=== PATIENT | female | born 1940 | race Caucasian/White ===

== ENCOUNTER 2019-05-24 20:21 | Emergency (ER) | payer OTHER ==
[~2019-05-24] VITALS: Ht 167.6 cm; Wt 73.9 kg
[~2019-05-24 20:21] MED LIST: ATOR20 PO; CRUTCH USE; HYDACE5 PO; LEVSOD50 PO
[2019-05-24 22:20] LABS: BASOPHILS ABSOLUTE AUTO 0.06 K/mm3 (0.00-0.23); BASOPHILS PERCENT AUTO 1 % (0-2); EOSINOPHILS PERCENT AUTO 6 % (0-6); Hematocrit 35.2 % (33.0-51.0); IMMATURE GRAN ABSOLUTE AUTO 0.06 K/mm3 (0.00-0.10); IMMATURE GRAN PERCENT AUTO 1 % (0-1); LYMPHOCYTES ABSOLUTE AUTO 2.54 K/mm3 (0.84-5.20); LYMPHOCYTES PERCENT AUTO 26 % (21-46); MONOCYTES ABSOLUTE AUTO 0.67 K/mm3 (0.16-1.47); MONOCYTES PERCENT AUTO 7 % (4-13); Mean Corpuscular HGB 30.6 pg (26.0-34.0); Mean Corpuscular HGB Conc 34.1 g/dL (31.5-36.5); Mean Corpuscular Volume 90 fL (80-100); Mean Platelet Volume 8.7 fL (9.1-12.4); NEUTROPHILS PERCENT AUTO 61 % (41-73); Platelet Count 347 K/mm3 (150-400); RDW Coefficient Variation 12.7 % (11.7-14.2); RDW Standard Deviation 41.9 fL (35.1-46.3); Red Blood Cell Count 3.92 M/mm3 (3.80-5.20); White Blood Cell Count 9.93 K/mm3 (4.00-11.30)
[2019-05-24 22:39] LABS: Alanine Aminotransfer (ALT/SGP 22 U/L (12-78); Albumin, Blood 4.2 g/dL (3.4-5.0); Albumin/Globulin Ratio 1.1 (0.8-1.8); Alk Phos 106 U/L (50-136); Anion Gap 5 mmol/L (6-16); Aspartate Aminotrans (AST/SGOT 16 U/L (12-37); Bilirubin, Total 0.8 mg/dL (0.1-1.0); Blood Urea Nitrogen 23 mg/dL (8-24); CO2, Blood 27 mmol/L (21-32); Calcium, Blood 9.8 mg/dL (8.5-10.1); Chloride, Blood 107 mmol/L (98-108); Creatinine, Blood 0.85 mg/dL (0.40-1.00); Globulin, Blood 3.9 g/dL (2.2-4.0); Glomerular Filtration Rate >60 (60-); Glucose, Blood 134 mg/dL (70-99); Potassium, Blood 3.4 mmol/L (3.5-5.5); Sodium, Blood 139 mmol/L (136-145); Total Protein, Blood 8.1 g/dL (6.4-8.2)
[2019-05-24 22:50] LABS: Source, Urine Clean Catch
[2019-05-24 22:54] LABS: Bilirubin, Urine Neg (Neg); Blood, Urine Neg (Neg); Glucose Qualitative, Urine Neg (Neg); Ketones, Urine Neg (Neg); Leukocyte Esterase, Urine Neg (Neg); Nitrite, Urine Neg (Neg); Protein, Urine Neg (Neg); Specific Gravity, Urine 1.015 (1.003-1.022); Urobilinogen, Urine NORM (Normal)
[2019-05-24 22:56] LABS: Appearance, Urine Clear (Clear); Color, Urine Yellow (P-Yellow)
[2019-05-24] MEDS ORDERED: METFORMIN HCL500 M3 PO (23:52)
[2019-05-24] MEDS ORDERED: OMEP20ER PO (23:52)
[2019-05-24] MEDS ORDERED: Mobic15 MG PO (23:52)
[2019-05-24] MEDS ORDERED: LOSARTAN-HCTZ1 EAC2 PO (23:53)
[2019-05-24] MEDS ORDERED: PROP80ER PO (23:53)
[2019-05-24] MEDS ORDERED: HYDCHL25 PO (23:53)
[2019-05-24] MEDS ORDERED: LOSARTAN POTASS25 M2 PO (23:54)
== END 2019-05-25 02:18 | disposition home or self-care (01) ==
LOC: ER 20:21
PROVIDERS: Physician Assistant
DX: I10 Essential (primary) hypertension (principal); R27.0 Ataxia, unspecified; E78.5 Hyperlipidemia, unspecified; E03.9 Hypothyroidism, unspecified; Z79.899 Other long term (current) drug therapy
CPT/HCPCS: 36415; 70450; 80053; 81003; 84484; 85025; 93005; 93010; 99284-25

== ENCOUNTER 2020-07-15 19:22 | Emergency (ER) | payer OTHER ==
[~2020-07-15] VITALS: Ht 157.5 cm; Wt 70.3 kg
[~2020-07-15 19:22] MED LIST changes: +HYDCHL25 PO; +LOSARTAN POTASS25 M2 PO; +LOSARTAN-HCTZ1 EAC2 PO; +METFORMIN HCL500 M3 PO; +Mobic15 MG PO; +OMEP20ER PO; +PROP80ER PO
[2020-07-15 20:13] LABS: BASOPHILS ABSOLUTE AUTO 0.08 K/mm3 (0.00-0.23); BASOPHILS PERCENT AUTO 1 % (0-2); EOSINOPHILS ABSOLUTE AUTO 0.52 K/mm3 (0.00-0.68); EOSINOPHILS PERCENT AUTO 5 % (0-6); Hematocrit 28.9 % (33.0-51.0); Hemoglobin 9.4 g/dL (11.5-16.0); IMMATURE GRAN ABSOLUTE AUTO 0.05 K/mm3 (0.00-0.10); IMMATURE GRAN PERCENT AUTO 1 % (0-1); LYMPHOCYTES PERCENT AUTO 22 % (21-46); MONOCYTES ABSOLUTE AUTO 0.75 K/mm3 (0.16-1.47); MONOCYTES PERCENT AUTO 7 % (4-13); Mean Corpuscular HGB 29.2 pg (26.0-34.0); Mean Corpuscular HGB Conc 32.5 g/dL (31.5-36.5); Mean Corpuscular Volume 90 fL (80-100); Mean Platelet Volume 8.6 fL (9.1-12.4); NEUTROPHILS ABSOLUTE AUTO 6.84 K/mm3 (1.96-9.15); NEUTROPHILS PERCENT AUTO 65 % (41-73); Platelet Count 391 K/mm3 (150-400); RDW Coefficient Variation 14.2 % (11.7-14.2); RDW Standard Deviation 46.6 fL (35.1-46.3); Red Blood Cell Count 3.22 M/mm3 (3.80-5.20); White Blood Cell Count 10.54 K/mm3 (4.00-11.30)
[2020-07-15 20:41] LABS: Albumin, Blood 3.8 g/dL (3.4-5.0); Bilirubin, Total 0.4 mg/dL (0.1-1.0); Bun/Creatinine Ratio 26.4 (12.0-20.0); Creatinine, Blood 1.06 mg/dL (0.40-1.00); Potassium, Blood 3.7 mmol/L (3.5-5.5); Total Protein, Blood 7.8 g/dL (6.4-8.2)
[2020-07-15] MEDS ORDERED: LOSA25 PO (23:19)
[2020-07-15] MEDS ORDERED: PANT40 PO (23:21)
[2020-07-15] MEDS ORDERED: CITA20 (23:21)
[2020-07-16 00:38] LABS: Source, Urine Clean Catch
[2020-07-16 00:39] LABS: Bilirubin, Urine Neg (Neg); Blood, Urine Neg (Neg); Glucose Qualitative, Urine 4+ (Neg); Ketones, Urine Neg (Neg); Leukocyte Esterase, Urine 2+ (Neg); Nitrite, Urine Neg (Neg); Protein, Urine Neg (Neg); Urobilinogen, Urine NORM (Normal)
[2020-07-16 00:46] LABS: Appearance, Urine Clear (Clear); Bacteria Mod /hpf; Color, Urine Yellow (P-Yellow); Red Blood Cells, Urine 0-2 /hpf (0-2); Squamous Epithelial Cells Few /hpf (Few)
[2020-07-16] MEDS ORDERED: CEFP200 PO (01:30)
[2020-09-24] MEDS ORDERED: ATOR20 PO (08:24)
[2020-09-24] MEDS ORDERED: ESCI10 PO (08:24)
[2020-09-24] MEDS ORDERED: DIGESTIVE ENZYMES PO (08:24)
[2020-09-24] MEDS ORDERED: Aspir 8181 MG PO (08:24)
[2020-09-24] MEDS ORDERED: GLIM2 PO (08:25)
[2020-09-24] MEDS ORDERED: EUTHYROX150 MCG PO (08:25)
[2020-09-24] MEDS ORDERED: LEVSOD75 PO (08:25)
[2020-09-24] MEDS ORDERED: LEVOTHYROXINE PO (08:25)
[2020-09-24] MEDS ORDERED: LOSARTAN-HCTZ1 EAC6 PO (08:26)
[2020-09-24] MEDS ORDERED: MULTIPLE VITAM1 EACH PO (08:26)
[2020-09-24] MEDS ORDERED: OMEP20ER PO (08:26)
[2020-09-24] MEDS ORDERED: MOBIC15 MG PO (08:26)
[2020-09-24] MEDS ORDERED: PANT40 PO (08:26)
[2020-09-24] MEDS ORDERED: VERAPAMIL ER120 M1 PO (08:27)
[2020-09-24] MEDS ORDERED: XIGDUO PO (08:27)
== END 2020-07-16 02:03 | disposition home or self-care (01) ==
LOC: ER 19:22
PROVIDERS: Physician Assistant
DX: N39.0 Urinary tract infection, site not specified (principal); I10 Essential (primary) hypertension; E03.9 Hypothyroidism, unspecified; E78.5 Hyperlipidemia, unspecified; Z88.8 Allergy status to other drugs, medicaments and biological substances; Z79.899 Other long term (current) drug therapy
CPT/HCPCS: 36415; 80053; 81001; 85025; 87077; 87086; 87186; 93005; 93010; 99284-25; A9270

== ENCOUNTER 2021-08-06 22:26 | Emergency (ER) | payer OTHER ==
[~2021-08-06] VITALS: Ht 167.6 cm; Wt 63.5 kg
[~2021-08-06 22:26] MED LIST changes: +Aspir 8181 MG PO; +CEFP200 PO; +CITA20; +DIGESTIVE ENZYMES PO; +ESCI10 PO; +EUTHYROX150 MCG PO; +GLIM2 PO; +LEVOTHYROXINE PO; +LEVSOD75 PO; +LOSA25 PO; +LOSARTAN-HCTZ1 EAC6 PO; +MOBIC15 MG PO; +MULTIPLE VITAM1 EACH PO; +PANT40 PO; +Percocet 5-3251 EACH PO; +VERAPAMIL ER120 M1 PO; +XIGDUO PO
[2021-08-06] MEDS ORDERED: METF500 PO ×2 (23:36)
[2021-08-06] MEDS ORDERED: GALANTAMINE PO (23:38)
[2021-08-07 02:08] LABS: BASOPHILS ABSOLUTE AUTO 0.07 K/mm3 (0.00-0.23); BASOPHILS PERCENT AUTO 0 % (0-2); EOSINOPHILS ABSOLUTE AUTO 0.11 K/mm3 (0.00-0.68); EOSINOPHILS PERCENT AUTO 1 % (0-6); Hematocrit 26.8 % (33.0-51.0); Hemoglobin 8.4 g/dL (11.5-16.0); IMMATURE GRAN ABSOLUTE AUTO 0.17 K/mm3 (0.00-0.10); IMMATURE GRAN PERCENT AUTO 1 % (0-1); LYMPHOCYTES ABSOLUTE AUTO 1.52 K/mm3 (0.84-5.20); LYMPHOCYTES PERCENT AUTO 9 % (21-46); MONOCYTES ABSOLUTE AUTO 1.15 K/mm3 (0.16-1.47); MONOCYTES PERCENT AUTO 7 % (4-13); Mean Corpuscular HGB 26.2 pg (26.0-34.0); Mean Corpuscular HGB Conc 31.3 g/dL (31.5-36.5); Mean Corpuscular Volume 84 fL (80-100); NEUTROPHILS ABSOLUTE AUTO 14.19 K/mm3 (1.96-9.15); NEUTROPHILS PERCENT AUTO 83 % (41-73); Platelet Count 406 K/mm3 (150-400); RDW Standard Deviation 55.1 fL (35.1-46.3); Red Blood Cell Count 3.21 M/mm3 (3.80-5.20); White Blood Cell Count 17.21 K/mm3 (4.00-11.30)
[2021-08-07 02:14] LABS: Albumin, Blood 3.9 g/dL (3.4-5.0); Bilirubin, Total 0.6 mg/dL (0.1-1.0); Bun/Creatinine Ratio 24.8 (12.0-20.0); Calcium, Blood 9.4 mg/dL (8.5-10.1); Creatinine, Blood 1.05 mg/dL (0.40-1.00); Globulin, Blood 3.8 g/dL (2.2-4.0); Potassium, Blood 3.6 mmol/L (3.5-5.5); Total Protein, Blood 7.7 g/dL (6.4-8.2)
[2021-08-07] MEDS ORDERED: ONDA4ODT MM (03:21)
[2021-08-10] MEDS ORDERED: ESCI20 (03:30)
== END 2021-08-07 04:04 | disposition home or self-care (01) ==
LOC: ER 22:26
PROVIDERS: Emergency Medicine
DX: S06.0X9A Concussion with loss of consciousness of unspecified duration, initial encounter (principal); R11.2 Nausea with vomiting, unspecified; W22.8XXA Striking against or struck by other objects, initial encounter; E03.9 Hypothyroidism, unspecified; E78.5 Hyperlipidemia, unspecified; I10 Essential (primary) hypertension; Z88.8 Allergy status to other drugs, medicaments and biological substances; Z79.899 Other long term (current) drug therapy; Z79.84 Long term (current) use of oral hypoglycemic drugs; Z79.82 Long term (current) use of aspirin
CPT/HCPCS: 36415; 70450; 70496; 70498; 80053; 83690; 85025; 96374; 99284-25; A9270; J2405; Q9967

== ENCOUNTER 2021-11-08 09:44 | Inpatient (IN) | payer OTHER ==
[~2021-11-08] VITALS: Ht 167.6 cm; Wt 66.2 kg
[~2021-11-08 09:44] MED LIST changes: +ESCI20; +GALANTAMINE PO; +METF500 PO; +ONDA4ODT MM
[2021-11-08 11:31] LABS: BASOPHILS ABSOLUTE AUTO 0.05 K/mm3 (0.00-0.23); BASOPHILS PERCENT AUTO 0 % (0-2); EOSINOPHILS ABSOLUTE AUTO 0.01 K/mm3 (0.00-0.68); EOSINOPHILS PERCENT AUTO 0 % (0-6); Hematocrit 30.7 % (33.0-51.0); Hemoglobin 9.8 g/dL (11.5-16.0); IMMATURE GRAN PERCENT AUTO 1 % (0-1); LYMPHOCYTES ABSOLUTE AUTO 1.23 K/mm3 (0.84-5.20); LYMPHOCYTES PERCENT AUTO 6 % (21-46); MONOCYTES ABSOLUTE AUTO 1.52 K/mm3 (0.16-1.47); MONOCYTES PERCENT AUTO 8 % (4-13); Mean Corpuscular HGB 26.1 pg (26.0-34.0); Mean Corpuscular HGB Conc 31.9 g/dL (31.5-36.5); Mean Corpuscular Volume 82 fL (80-100); Mean Platelet Volume 8.6 fL (9.1-12.4); NEUTROPHILS ABSOLUTE AUTO 16.82 K/mm3 (1.96-9.15); NEUTROPHILS PERCENT AUTO 85 % (41-73); Platelet Count 499 K/mm3 (150-400); RDW Coefficient Variation 15.2 % (11.7-14.2); RDW Standard Deviation 44.7 fL (35.1-46.3); Red Blood Cell Count 3.75 M/mm3 (3.80-5.20); White Blood Cell Count 19.83 K/mm3 (4.00-11.30)
[2021-11-08 11:38] LABS: Source, Urine Straight Cath
[2021-11-08 11:50] LABS: Albumin, Blood 3.1 g/dL (3.4-5.0); Albumin/Globulin Ratio 0.6 (0.8-1.8); Bilirubin, Total 1.1 mg/dL (0.1-1.0); Bun/Creatinine Ratio 16.1 (12.0-20.0); Calcium, Blood 9.9 mg/dL (8.5-10.1); Creatinine, Blood 1.43 mg/dL (0.40-1.00); Globulin, Blood 5.1 g/dL (2.2-4.0); Total Protein, Blood 8.2 g/dL (6.4-8.2)
[2021-11-08] MEDS ORDERED: LORA.5 (11:57)
[2021-11-08] MEDS ORDERED: PROC25S (11:57)
[2021-11-08] MEDS ORDERED: [UNRECOGNIZED DRUG - OTHER] (11:57)
[2021-11-08] MEDS ORDERED: ONDA4ODT (11:58)
[2021-11-08 12:25] LABS: Appearance, Urine Hazy (Clear); Bilirubin, Urine Neg (Neg); Blood, Urine 4+ (Neg); Color, Urine Yellow (P-Yellow); Glucose Qualitative, Urine Neg (Neg); Ketones, Urine Neg (Neg); Leukocyte Esterase, Urine 3+ (Neg); Nitrite, Urine Neg (Neg); Protein, Urine 3+ (Neg); Urobilinogen, Urine NORM (Normal)
[2021-11-08 12:46] LABS: Influenza A, PCR NEGATIVE (NEGATIVE); Influenza B, PCR NEGATIVE (NEGATIVE); Resp Syncytial Virus, PCR NEGATIVE (NEGATIVE); SARS-Cov-2 (COVID-19) PCR, MMC NEGATIVE (NEGATIVE)
[2021-11-08 12:53] LABS: Bacteria Mod /hpf; Squamous Epithelial Cells Few /hpf (Few); Transitional Epithelial Cells Few /hpf (0-Rare)
[2021-11-08 17:23] LABS: Percent Saturation 6.2 % (15.0-50.0)
--- NOTE | 2021-11-08 18:46 | NUR ---
SHIFT SUMMARY PTN TRANSFER FROM ER. REPORTED TO BE WITH NAUSEA AND VOMITING FOR PAST WEEK, NOW WEAK AND DEHYRATED. PLEASANT AND COOPERATIVE. PTN WAS INDEPENDENT AT HOME UNTIL THIS EPISODE. PTN CURRENTLY A 2-PERSON ASSIST DUE TO WEAKNESS. RIGHT KNEE DISCOMFORT DUE TO ARTHRITIS FOR WHICH SHE TAKES TYLENOL. PTN CONTINENT, USING BEDSIDE COMMODE CURRENTLY. 20 G IV TO RIGHT FOREARM, CURRENTLY RUNNING NS CONTINUOUS. BP ELEVATED, THOUGH PTN HAS NOT BEEN ABLE TO KEEP ANYTHING DOWN. TODAY NO VOMITING, NAUSEA ONLY. PTN STATES FEELING SOMEWHAT BETTER TODAY. CONSULT FOR PALLIATIVE CARE.
[2021-11-09 04:39] LABS: BASOPHILS ABSOLUTE AUTO 0.05 K/mm3 (0.00-0.23); BASOPHILS PERCENT AUTO 0 % (0-2); EOSINOPHILS ABSOLUTE AUTO 0.13 K/mm3 (0.00-0.68); EOSINOPHILS PERCENT AUTO 1 % (0-6); Hemoglobin 7.8 g/dL (11.5-16.0); IMMATURE GRAN ABSOLUTE AUTO 0.08 K/mm3 (0.00-0.10); IMMATURE GRAN PERCENT AUTO 1 % (0-1); LYMPHOCYTES ABSOLUTE AUTO 1.74 K/mm3 (0.84-5.20); LYMPHOCYTES PERCENT AUTO 13 % (21-46); MONOCYTES ABSOLUTE AUTO 1.27 K/mm3 (0.16-1.47); MONOCYTES PERCENT AUTO 10 % (4-13); Mean Corpuscular HGB 25.7 pg (26.0-34.0); Mean Corpuscular HGB Conc 31.2 g/dL (31.5-36.5); Mean Corpuscular Volume 83 fL (80-100); Mean Platelet Volume 8.5 fL (9.1-12.4); NEUTROPHILS ABSOLUTE AUTO 9.88 K/mm3 (1.96-9.15); NEUTROPHILS PERCENT AUTO 75 % (41-73); Platelet Count 412 K/mm3 (150-400); RDW Standard Deviation 45.4 fL (35.1-46.3); Red Blood Cell Count 3.03 M/mm3 (3.80-5.20); White Blood Cell Count 13.15 K/mm3 (4.00-11.30)
--- NOTE | 2021-11-09 04:49 | NUR ---
SHIFT SUMMARY 81 YR F ADMITTED ON 11/08 FOR UTI. DNR. PT C/O RIGHT KNEE PAIN STAING THAT IT IS VERY PAINFUL TO GET OUT OF BED TO USE THE BATHROOM, AND THAT SHE CAN'T WALK. SHE IS RECEIVING CONTINUOUS FLUIDS @ 100 ML/HR SO IT WAS DECIDED TO USE A PUREWICK TO AVOID THE PT HAVING TO GET UP CONSTANTLY TO URINATE. IT IS WORKING VERY WELL. SHE IS A VERY PLEASANT WOMAN AND IS FULLY COOPERATIVE WITH HER CARE. BP IS ELEVATED AND VERAPAMIL IS SCHEDULED FOR 0900.
[2021-11-09 05:03] LABS: Albumin, Blood 2.4 g/dL (3.4-5.0); Anion Gap 8 mmol/L (6-16); Blood Urea Nitrogen 14 mg/dL (8-24); Bun/Creatinine Ratio 13.9 (12.0-20.0); CO2, Blood 25 mmol/L (21-32); Calcium, Blood 8.8 mg/dL (8.5-10.1); Chloride, Blood 104 mmol/L (98-108); Creatinine, Blood 1.01 mg/dL (0.40-1.00); Glomerular Filtration Rate 57 (60-); Glucose, Blood 136 mg/dL (70-99); Phosphorus, Blood 2.7 mg/dL (2.5-4.9); Potassium, Blood 2.9 mmol/L (3.5-5.5); Sodium, Blood 137 mmol/L (136-145)
[2021-11-09 15:00] LABS: Bun/Creatinine Ratio 14.5 (12.0-20.0); Calcium, Blood 8.6 mg/dL (8.5-10.1); Creatinine, Blood 0.96 mg/dL (0.40-1.00); Potassium, Blood 3.4 mmol/L (3.5-5.5)
--- NOTE | 2021-11-09 18:39 | NUR ---
PATIENT IS ALERT AND ORIENTED. POOR HISTORIAN AT TIMES. PATIENT STATES SHE FEELS 100X BETTER THIS SHIFT. TOLERATING HER DIET, NO NV. C/O BACK PAIN MEDICATED PER EMAR. HER GRANDDAUGHTER STATES THIS PATIENT HAS HAD THIS BACK PAIN CHRONICALLY. PATIENT WORKED WITH PT TODAY. UP IN RECLINER. PUREWICK IN PLACE. WILL CONTINUE TO MONITOR
--- NOTE | 2021-11-10 05:39 | NUR ---
PT AOX4, NO N/V T/O SHIFT. PT C/O BACK PAIN 11/21 AND WAS GIVEN PRN TYLENOL AND THEN WAS ABLE TO SLEEP. WHEN ASKED IF SHE NEEDED ANYTHING STRONGER SHE EMPHATICALLY SAID NO. PT SLEPT WELL T/O MOST OF THE NIGHT. PUREWICK IN PLACE AND DRAINING WELL. PT STATED SHE FELT TO WEAK TO TRY THE C TONIGHT AT THE START OF THE SHIFT.
[2021-11-10 05:40] LABS: BASOPHILS ABSOLUTE AUTO 0.05 K/mm3 (0.00-0.23); BASOPHILS PERCENT AUTO 1 % (0-2); EOSINOPHILS PERCENT AUTO 3 % (0-6); Hematocrit 24.5 % (33.0-51.0); Hemoglobin 7.6 g/dL (11.5-16.0); IMMATURE GRAN ABSOLUTE AUTO 0.06 K/mm3 (0.00-0.10); IMMATURE GRAN PERCENT AUTO 1 % (0-1); LYMPHOCYTES ABSOLUTE AUTO 1.94 K/mm3 (0.84-5.20); LYMPHOCYTES PERCENT AUTO 20 % (21-46); MONOCYTES ABSOLUTE AUTO 0.93 K/mm3 (0.16-1.47); MONOCYTES PERCENT AUTO 9 % (4-13); Mean Corpuscular HGB 25.6 pg (26.0-34.0); Mean Corpuscular Volume 83 fL (80-100); Mean Platelet Volume 8.9 fL (9.1-12.4); NEUTROPHILS ABSOLUTE AUTO 6.58 K/mm3 (1.96-9.15); NEUTROPHILS PERCENT AUTO 67 % (41-73); Platelet Count 426 K/mm3 (150-400); RDW Coefficient Variation 15.4 % (11.7-14.2); RDW Standard Deviation 46.1 fL (35.1-46.3); Red Blood Cell Count 2.97 M/mm3 (3.80-5.20); White Blood Cell Count 9.86 K/mm3 (4.00-11.30)
[2021-11-10 06:01] LABS: Albumin, Blood 2.3 g/dL (3.4-5.0); Anion Gap 7 mmol/L (6-16); Blood Urea Nitrogen 15 mg/dL (8-24); Bun/Creatinine Ratio 14.7 (12.0-20.0); CO2, Blood 22 mmol/L (21-32); Calcium, Blood 8.5 mg/dL (8.5-10.1); Chloride, Blood 108 mmol/L (98-108); Creatinine, Blood 1.02 mg/dL (0.40-1.00); Glomerular Filtration Rate 56 (60-); Glucose, Blood 156 mg/dL (70-99); Magnesium, Blood 1.7 mg/dL (1.6-2.4); Phosphorus, Blood 2.2 mg/dL (2.5-4.9); Potassium, Blood 3.7 mmol/L (3.5-5.5); Sodium, Blood 137 mmol/L (136-145)
[2021-11-10] MEDS ORDERED: AMOCLA875 PO (14:52)
[2021-11-10] MEDS ORDERED: Aspir 8181 MG PO (14:52)
[2021-11-10] MEDS ORDERED: Acetaminophen650 M1 PO (14:52)
[2021-11-10] MEDS ORDERED: Celexa20 MG PO (14:53)
[2021-11-10] MEDS ORDERED: ATOR20 PO (14:53)
[2021-11-10] MEDS ORDERED: LOSA25 PO (14:53)
[2021-11-10] MEDS ORDERED: FAMO10 PO (14:54)
[2021-11-10] MEDS ORDERED: FERSU300 PO (14:54)
[2021-11-10] MEDS ORDERED: ATIVAN0.5 MG PO (14:55)
[2021-11-10] MEDS ORDERED: GALA4 PO (14:55)
[2021-11-10] MEDS ORDERED: VISBIOME 112.51 EACH PO (14:56)
[2021-11-10] MEDS ORDERED: VERA120ERB PO (14:56)
[2021-11-10] MEDS ORDERED: EUTHYROX125 MCG PO (14:57)
[2021-11-10] MEDS ORDERED: PANT40 PO (14:57)
--- NOTE | 2021-11-10 15:40 | NUR ---
DISCHARGE PATIENT TRANSPORTED VIA WHEELCHAIR TO PRIVATE VEHICLE. DISCHARGE INSTRUCTIONS EXPLAINED TO PATIENT. PATIENT STATED UNDERSTANDING. PACKET SENT WITH PATIENT. BELONGINGS SENT WITH PATIENT. IV REMOVED WIHTOUT DIFFICULTY BY DARWIN CASSIDY. MEDICATIONS FAXED TO PREFERRED PHARMACY. PATIENT TO SCHEDULE FOLLOW UP APPOINTMENT.
== END 2021-11-10 13:41 | disposition home health service (06) | DRG 683 ==
LOC: ER 09:44 → MEDS 16:02
PROVIDERS: Emergency Medicine; ADMIT Internal Medicine
DX: N17.9 Acute kidney failure, unspecified (principal); E87.1 Hypo-osmolality and hyponatremia; N39.0 Urinary tract infection, site not specified; E86.0 Dehydration; E03.9 Hypothyroidism, unspecified; G30.9 Alzheimer's disease, unspecified; D50.9 Iron deficiency anemia, unspecified; Z20.822 Contact with and (suspected) exposure to COVID-19; E78.5 Hyperlipidemia, unspecified; E11.9 Type 2 diabetes mellitus without complications; Z86.73 Personal history of transient ischemic attack (TIA), and cerebral infarction without residual deficits; Z88.8 Allergy status to other drugs, medicaments and biological substances; Z90.49 Acquired absence of other specified parts of digestive tract; Z90.710 Acquired absence of both cervix and uterus; Z79.82 Long term (current) use of aspirin; Z79.899 Other long term (current) drug therapy; D75.839 Thrombocytosis, unspecified; D64.9 Anemia, unspecified
CPT/HCPCS: 0241U; 36415; 51701; 73562-RT; 76770; 80048; 80053; 80069; 81001; 82728; 83540; 83550; 83690; 83735; 85025; 87086; 87147; 93005; 93010; 96361-59; 96374-59; 96375-59; 97110; 97112; 97116; 97161; 97530; 99285-25; A9270; J0360; J0696; J1650; J2405; J3480; J7030; J7050; J7120

== ENCOUNTER 2022-05-11 10:58 | Day surgery (SDC) | payer OTHER ==
[~2022-05-11] VITALS: Ht 167.6 cm; Wt 68.9 kg
[~2022-05-11 10:58] MED LIST changes: +AMOCLA875 PO; +ATIVAN0.5 MG PO; +Acetaminophen650 M1 PO; +Celexa20 MG PO; +EUTHYROX125 MCG PO; +FAMO10 PO; +FERSU300 PO; +GALA4 PO; +LORA.5; +ONDA4ODT; +PROC25S; +VERA120ERB PO; +VISBIOME 112.51 EACH PO; +[UNRECOGNIZED DRUG - OTHER]
[2022-05-11] MEDS ORDERED: Carvedilol12.5 MG (11:13)
[2022-05-11] MEDS ORDERED: CHLO25B (11:13)
[2022-05-11] MEDS ORDERED: FURO20 (11:14)
[2022-05-11] MEDS ORDERED: ESCI20 (11:14)
[2022-05-11] MEDS ORDERED: MEMA5TAB (11:14)
== END 2022-05-11 13:30 | disposition home or self-care (01) ==
LOC: ORSCSDS 10:58
PROVIDERS: Student in an Organized Health Care Education/Training Program
PROC: 0DBL8ZX Excision of Transverse Colon, Via Natural or Artificial Opening Endoscopic, Diagnostic (ICD-10-PCS; principal; 2022-05-11 12:15)
PROC: 0DBH8ZX Excision of Cecum, Via Natural or Artificial Opening Endoscopic, Diagnostic (ICD-10-PCS; principal; 2022-05-11 12:15)
PROC: 0DBK8ZX Excision of Ascending Colon, Via Natural or Artificial Opening Endoscopic, Diagnostic (ICD-10-PCS; principal; 2022-05-11 12:15)
DX: D50.9 Iron deficiency anemia, unspecified (principal); K92.1 Melena; D12.3 Benign neoplasm of transverse colon; D12.0 Benign neoplasm of cecum; D12.2 Benign neoplasm of ascending colon; K64.8 Other hemorrhoids; K64.4 Residual hemorrhoidal skin tags; K62.89 Other specified diseases of anus and rectum; I10 Essential (primary) hypertension; E11.9 Type 2 diabetes mellitus without complications; E03.9 Hypothyroidism, unspecified; Z79.82 Long term (current) use of aspirin; Z79.899 Other long term (current) drug therapy; Z79.84 Long term (current) use of oral hypoglycemic drugs
CPT/HCPCS: 82947; 88305; J2704; J7120

== ENCOUNTER 2022-05-23 23:59 | Observation (INO) | payer OTHER ==
[~2022-05-23] VITALS: Ht 162.6 cm; Wt 68.0 kg
[~2022-05-23 23:59] MED LIST changes: +CHLO25B PO; +Carvedilol12.5 MG PO; +ESCI20 PO; +FURO20 PO; +LOSARTAN POTAS100 MG PO; +MEMA5TAB
[2022-05-24 00:57] LABS: BASOPHILS ABSOLUTE AUTO 0.07 K/mm3 (0.00-0.23); BASOPHILS PERCENT AUTO 0 % (0-2); EOSINOPHILS ABSOLUTE AUTO 0.28 K/mm3 (0.00-0.68); EOSINOPHILS PERCENT AUTO 2 % (0-6); Hemoglobin 11.7 g/dL (11.5-16.0); IMMATURE GRAN PERCENT AUTO 2 % (0-1); LYMPHOCYTES ABSOLUTE AUTO 1.47 K/mm3 (0.84-5.20); LYMPHOCYTES PERCENT AUTO 8 % (21-46); MONOCYTES ABSOLUTE AUTO 1.07 K/mm3 (0.16-1.47); MONOCYTES PERCENT AUTO 6 % (4-13); Mean Corpuscular HGB 31.4 pg (26.0-34.0); Mean Corpuscular HGB Conc 34.4 g/dL (31.5-36.5); Mean Corpuscular Volume 91 fL (80-100); Mean Platelet Volume 9.5 fL (9.1-12.4); NEUTROPHILS ABSOLUTE AUTO 15.96 K/mm3 (1.96-9.15); NEUTROPHILS PERCENT AUTO 83 % (41-73); Platelet Count 263 K/mm3 (150-400); RDW Coefficient Variation 12.2 % (11.7-14.2); RDW Standard Deviation 40.4 fL (35.1-46.3); Red Blood Cell Count 3.73 M/mm3 (3.80-5.20); White Blood Cell Count 19.25 K/mm3 (4.00-11.30)
[2022-05-24 01:37] LABS: Albumin, Blood 3.5 g/dL (3.4-5.0); Albumin/Globulin Ratio 0.9 (0.8-1.8); Bilirubin, Total 0.7 mg/dL (0.1-1.0); Bun/Creatinine Ratio 32.8 (12.0-20.0); Calcium, Blood 9.3 mg/dL (8.5-10.1); Creatinine, Blood 1.34 mg/dL (0.40-1.00); Globulin, Blood 3.7 g/dL (2.2-4.0); Total Protein, Blood 7.2 g/dL (6.4-8.2)
[2022-05-24] MEDS ORDERED: Acetaminophen650 M1 PO (05:12)
[2022-05-24] MEDS ORDERED: Celexa20 MG PO (05:14)
[2022-05-24] MEDS ORDERED: FAMO10 PO (05:15)
[2022-05-24] MEDS ORDERED: LORA.5 PO (05:17)
[2022-05-24] MEDS ORDERED: GALA4 PO (05:18)
[2022-05-24] MEDS ORDERED: Micro-K8 MEQ PO (05:23)
[2022-05-24] MEDS ORDERED: LEVOCETIRIZINE D5 MG PO (05:25)
[2022-05-24] MEDS ORDERED: MEMANTINE HCL511 PO (05:26)
--- NOTE | 2022-05-24 18:23 | NUR ---
SHIFT SUMMARY PT AOX4 AND VERY PLEASANT AND COOPERATIVE. SHE HAS C/O PAIN T/O THE SHIFT AND WAS MEDICATED PER THE EMAR. SHE HAS BEEN ON BEDREST ALL DAY WITH A PURWICK IN PLACE. SHE HAS BEEN EATING WELL. HER CBG'S HAVE BEEN ELEVATED AT TIMES, THE PROVIDER WAS NOTIFIED AND INSULIN WAS GIVEN ORDERED. HOME MEDICATIONS WERE RESTARTED TOO. WILL REPORT TO ONCOMING NURSE.
[2022-05-25 00:48] LABS: Source, Urine Clean Catch
[2022-05-25 00:54] LABS: Bilirubin, Urine Neg (Neg); Blood, Urine Neg (Neg); Glucose Qualitative, Urine 4+ (Neg); Ketones, Urine Neg (Neg); Leukocyte Esterase, Urine 3+ (Neg); Nitrite, Urine Neg (Neg); Protein, Urine 2+ (Neg); Urobilinogen, Urine NORM (Normal); pH, Urine 6.5 (5.0-8.0)
[2022-05-25 01:05] LABS: Appearance, Urine Hazy (Clear); Color, Urine Pale Yellow (P-Yellow)
[2022-05-25 01:06] LABS: Red Blood Cells, Urine 0-2 /hpf (0-2)
[2022-05-25 01:07] LABS: Bacteria Many /hpf; Squamous Epithelial Cells Rare /hpf (Few)
--- NOTE | 2022-05-25 05:34 | NUR ---
MEDICATED HYDROCODONE 2 TAB Q 4 HRS, PT TOLERATED REPOSITIONING WELL. PT EASILY AWOKEN, A&OX4, PT SLEPT MOST OF SHIFT
[2022-05-25 05:48] LABS: BASOPHILS ABSOLUTE AUTO 0.06 K/mm3 (0.00-0.23); BASOPHILS PERCENT AUTO 1 % (0-2); EOSINOPHILS ABSOLUTE AUTO 0.52 K/mm3 (0.00-0.68); EOSINOPHILS PERCENT AUTO 5 % (0-6); Hematocrit 33.3 % (33.0-51.0); Hemoglobin 11.4 g/dL (11.5-16.0); IMMATURE GRAN PERCENT AUTO 1 % (0-1); LYMPHOCYTES PERCENT AUTO 20 % (21-46); MONOCYTES ABSOLUTE AUTO 0.69 K/mm3 (0.16-1.47); MONOCYTES PERCENT AUTO 7 % (4-13); Mean Corpuscular HGB 31.9 pg (26.0-34.0); Mean Corpuscular HGB Conc 34.2 g/dL (31.5-36.5); Mean Corpuscular Volume 93 fL (80-100); Mean Platelet Volume 9.7 fL (9.1-12.4); NEUTROPHILS ABSOLUTE AUTO 6.82 K/mm3 (1.96-9.15); NEUTROPHILS PERCENT AUTO 67 % (41-73); Platelet Count 229 K/mm3 (150-400); RDW Coefficient Variation 12.5 % (11.7-14.2); RDW Standard Deviation 42.8 fL (35.1-46.3); Red Blood Cell Count 3.57 M/mm3 (3.80-5.20); White Blood Cell Count 10.19 K/mm3 (4.00-11.30)
[2022-05-25 06:26] LABS: Albumin, Blood 2.8 g/dL (3.4-5.0); Albumin/Globulin Ratio 0.7 (0.8-1.8); Bilirubin, Total 0.7 mg/dL (0.1-1.0); Calcium, Blood 8.9 mg/dL (8.5-10.1); Creatinine, Blood 1.48 mg/dL (0.40-1.00); Globulin, Blood 3.8 g/dL (2.2-4.0); Potassium, Blood 3.8 mmol/L (3.5-5.5); Total Protein, Blood 6.6 g/dL (6.4-8.2)
--- NOTE | 2022-05-25 19:34 | NUR ---
SHIFT SUMMARY A&O X 4. VSS. MEDICATED FOR PAIN PER EMAR WITH GOOD RELIEF. MEDICATED ONCE FOR NAUSEA. PT PARTICIPATED WITH PHYS THERAPY TODAY. PT IS AGREEABLE TO GO TO REHAB UPON DC. APPETITE IS GOOD.
--- NOTE | 2022-05-25 21:14 | NUR ---
PT ARRIVED VIA STRETCHER FORM ED, ABLE TO AMBULATE TO BED WITH NO ASSIST. PT AND FAMILY ORIENTED TO ROOM
--- NOTE | 2022-05-26 05:43 | NUR ---
PT CALLS FOR NEEDS, REPOSITION WITH PAIN MEDICATION. PAIN LESS THAN PREVIOUS NOC.
[2022-05-26 06:18] LABS: Bun/Creatinine Ratio 22.4 (12.0-20.0); Calcium, Blood 8.8 mg/dL (8.5-10.1); Creatinine, Blood 1.47 mg/dL (0.40-1.00); Potassium, Blood 3.7 mmol/L (3.5-5.5)
[2022-05-26] MEDS ORDERED: Acetaminophen650 M1 PO (13:56)
[2022-05-26] MEDS ORDERED: BISA10S PR (13:59)
[2022-05-26] MEDS ORDERED: DOCU100 PO (14:00)
[2022-05-26] MEDS ORDERED: GLIP2.5ER PO (14:02)
[2022-05-26] MEDS ORDERED: HYDR1TAB94 PO (14:03)
[2022-05-26] MEDS ORDERED: INSULIN GL100 UNIT/2 SC (14:05)
[2022-05-26] MEDS ORDERED: MIRALAX17 GM PO (14:05)
[2022-05-26] MEDS ORDERED: SENN187 PO (14:06)
[2022-05-26 14:25] LABS: SARS-Cov-2 (COVID-19) PCR, MMC NEGATIVE (NEGATIVE)
--- NOTE | 2022-05-26 17:17 | NUR ---
PT IS A/OX3, PLEASANT AND COOPERATIVE. THE PT HAS BEEN REPOSITIONED T/O THE DAY. PT WAS UP ON THE SIDE OF THE BED TODAY AND STOOD WITH THE OCCUPATIONAL THERAPIST. THE PT HAS BEEN MEDICATED FOR PAIN T/O THE DAY. THE PT WAS GIVEN BOWEL CARE TODAY FOR CONSTIPATION. PT APPEARS TO BE BREATHING EASILY ON RA WILL CONTINUE TO MONITOR AND ASSESS FOR CHANGES
--- NOTE | 2022-05-27 06:23 | NUR ---
BM LAST NIGHT, PT STATES TO FEEL BETTER. MEDICATED FOR PAIN Q4-5 HRS, REPOSITION WITH PAIN MEDICATION. CALLS FOR NEEDS.
--- NOTE | 2022-05-27 15:15 | NUR ---
PT DISCHARGED [facility] REPORT CALLED TO RN. THE PT WAS TRANSFERED VIA WHEELCHAIR. PT WAS MEDICATED FOR PAIN JUST PRIOR TO DC. BELONGINGS RELEASED TO THE PT
== END 2022-05-27 12:45 ==
LOC: ER 23:59 → MEDS 05-24 → ER 05-24 → MEDS 05-24 05:16
PROVIDERS: Internal Medicine; Internal Medicine Hematology & Oncology; Physician Assistant; ADMIT Internal Medicine
DX: S32.511A Fracture of superior rim of right pubis, initial encounter for closed fracture (principal); W19.XXXA Unspecified fall, initial encounter; E11.22 Type 2 diabetes mellitus with diabetic chronic kidney disease; N18.30 Chronic kidney disease, stage 3 unspecified; I12.9 Hypertensive chronic kidney disease with stage 1 through stage 4 chronic kidney disease, or unspecified chronic kidney disease; E03.9 Hypothyroidism, unspecified; E11.65 Type 2 diabetes mellitus with hyperglycemia; G30.9 Alzheimer's disease, unspecified; F02.80 Dementia in other diseases classified elsewhere, unspecified severity, without behavioral disturbance, psychotic disturbance, mood disturbance, and anxiety; Z86.73 Personal history of transient ischemic attack (TIA), and cerebral infarction without residual deficits; Z20.822 Contact with and (suspected) exposure to COVID-19; S32.10XA Unspecified fracture of sacrum, initial encounter for closed fracture
CPT/HCPCS: 36415; 72192; 73502; 80048; 80053; 81001; 82947; 83036; 83880; 85025; 87077; 87086; 87186; 96375; 96376; 97162; 97166; 97530; 97535; 99285-25; A9270; G0378; J1815; J2405; J3010; J7030; U0004

== ENCOUNTER → 2022-08-20 | Outpatient (CLI) | payer OTHER ==
[~2022-08-20] MED LIST changes: +BISA10S PR; +DOCU100 PO; +GLIP2.5ER PO; +HYDR1TAB94 PO; +INSULIN GL100 UNIT/2 SC; +LEVOCETIRIZINE D5 MG PO; +LORA.5 PO; +MEMANTINE HCL511 PO; +MIRALAX17 GM PO; +Micro-K8 MEQ PO; +SENN187 PO
[2022-08-20 12:57] LABS: Creatinine Urine 32.8 mg/dL (27.00-270.00); Protein, Urine Quantitative 19.8 mg/dL (0.0-11.9)
== END | disposition home or self-care (01) ==
LOC: LAB SHORT 10:54 → LAB 10:54
PROVIDERS: Internal Medicine Nephrology
DX: N18.30 Chronic kidney disease, stage 3 unspecified (principal); D63.1 Anemia in chronic kidney disease; N25.81 Secondary hyperparathyroidism of renal origin; E55.9 Vitamin D deficiency, unspecified; E78.00 Pure hypercholesterolemia, unspecified; G60.9 Hereditary and idiopathic neuropathy, unspecified; R76.9 Abnormal immunological finding in serum, unspecified; R94.5 Abnormal results of liver function studies
CPT/HCPCS: 81050; 82043; 82570; 84156

== ENCOUNTER → 2023-07-18 | Outpatient (CLI) | payer OTHER | END | disposition home or self-care (01) | LOC: LAB 13:00 → LAB SHORT 13:00 | DX: R30.0 Dysuria (principal); E78.5 Hyperlipidemia, unspecified ==

== ENCOUNTER 2024-02-26 21:46 | Inpatient (IN) | payer OTHER ==
[~2024-02-26] VITALS: Ht 167.6 cm; Wt 81.7 kg
[~2024-02-26 21:46] MED LIST changes: +ACET500 PO; -EUTHYROX125 MCG PO; -INSULIN GL100 UNIT/2 SC; +LEVSOD137 PO; +METAMUCIL POWD798 GM PO; -MIRALAX17 GM PO; +SEMGLEE (Y100 UNIT/2 SC; -VERA120ERB PO
[2024-02-26 22:51] LABS: BASOPHILS ABSOLUTE AUTO 0.04 K/mm3 (0.00-0.23); BASOPHILS PERCENT AUTO 0 % (0-2); EOSINOPHILS ABSOLUTE AUTO 0.04 K/mm3 (0.00-0.68); EOSINOPHILS PERCENT AUTO 0 % (0-6); Hematocrit 31.6 % (33.0-51.0); Hemoglobin 10.5 g/dL (11.5-16.0); IMMATURE GRAN PERCENT AUTO 2 % (0-1); LYMPHOCYTES ABSOLUTE AUTO 0.97 K/mm3 (0.84-5.20); LYMPHOCYTES PERCENT AUTO 8 % (21-46); MONOCYTES ABSOLUTE AUTO 0.66 K/mm3 (0.16-1.47); MONOCYTES PERCENT AUTO 5 % (4-13); Mean Corpuscular HGB Conc 33.2 g/dL (31.5-36.5); Mean Corpuscular Volume 93 fL (80-100); Mean Platelet Volume 8.8 fL (9.1-12.4); NEUTROPHILS ABSOLUTE AUTO 10.46 K/mm3 (1.96-9.15); NEUTROPHILS PERCENT AUTO 85 % (41-73); Platelet Count 320 K/mm3 (150-400); RDW Coefficient Variation 13.8 % (11.7-14.2); RDW Standard Deviation 47.1 fL (35.1-46.3); Red Blood Cell Count 3.39 M/mm3 (3.80-5.20); White Blood Cell Count 12.37 K/mm3 (4.00-11.30)
[2024-02-26 23:12] LABS: Magnesium, Blood 2.1 mg/dL (1.6-2.4); Thyroid Stimulating Hormone 0.115 uIU/mL (0.360-4.800)
[2024-02-26 23:13] LABS: Albumin, Blood 2.9 g/dL (3.4-5.0); Albumin/Globulin Ratio 0.7 (0.8-1.8); Bilirubin, Total 0.3 mg/dL (0.1-1.0); Bun/Creatinine Ratio 17.4 (12.0-20.0); Calcium, Blood 8.8 mg/dL (8.5-10.1); Creatinine, Blood 1.44 mg/dL (0.40-1.00); Globulin, Blood 4.2 g/dL (2.2-4.0); Phosphorus, Blood 3.2 mg/dL (2.5-4.9); Potassium, Blood 3.1 mmol/L (3.5-5.5); Total Protein, Blood 7.1 g/dL (6.4-8.2)
[2024-02-26] MEDS ORDERED: NS 1,000 ML IV SCH (23:55)
[2024-02-26] MEDS ORDERED: Potassium Chloride 20 MEQ TabCR PO ONE (23:55)
[2024-02-27] VITALS (17 sets, daily range): BP systolic 137–185; BP diastolic 56–74
[2024-02-27 00:07] LABS: Source, Urine Straight Cath
[2024-02-27 00:14] LABS: Bilirubin, Urine Neg (Neg); Blood, Urine 1+ (Neg); Glucose Qualitative, Urine 4+ (Neg); Ketones, Urine Neg (Neg); Leukocyte Esterase, Urine Neg (Neg); Nitrite, Urine Pos (Neg); Protein, Urine 2+ (Neg); Specific Gravity, Urine 1.015 (1.003-1.022); Urobilinogen, Urine NORM (Normal)
[2024-02-27 00:16] LABS: Appearance, Urine Hazy (Clear); Color, Urine Pale Yellow (P-Yellow)
[2024-02-27 00:32] LABS: Amorphous Mod (0-Heavy); Bacteria Many /hpf; Red Blood Cells, Urine 0-2 /hpf (0-2); Squamous Epithelial Cells Few /hpf (Few)
[2024-02-27] MEDS ORDERED: CefTRIAXone Sodium 1,000 MG in NS 50 ML IV ONE (01:05)
[2024-02-27] MEDS ORDERED: HYDROcodone 5-APAP 325 TAB PO PRN (02:10)
[2024-02-27] MEDS ORDERED: FentaNYL Citrate 50 MCG/ML 2 ML Injection IV PRN (02:10)
[2024-02-27] MEDS ORDERED: Ondansetron HCl 2 MG / ML 2ML Vial IV PRN (02:55)
--- NOTE | 2024-02-27 03:27 | NUR ---
ASSUMED CARE OF PT AT 0305 PT WAS ADMITTED FOR UTI AND POSSIBLE RIGHT HIP FX. PT HAS FLU LIKE SYMPTOMS AND IN ISOLATION TO RULE OUT C-DIFF AND RESP PANEL IS PENDING.PT ARRIVED VOMITING AND DR WANG WAS CALLED FOR MEDICATION RO HELP WITH NAUSEA, ORDERED ZOFRAN. PT IS NOW RESTING W/CALL LIGHT IN REACH AND HAS EMESIS BAGS CLOSE TO HER BEDSIDE. PT SEEMS SLIGHTLY CONFUSED, BED ALARM SET.
[2024-02-27] MEDS ORDERED: FURO20 PO (04:05)
[2024-02-27] MEDS ORDERED: JARDIANCE10 MG PO (04:06)
[2024-02-27] MEDS ORDERED: MELATONIN5 M1 PO (04:07)
[2024-02-27 04:09] LABS: Influenza B, PCR NEGATIVE (NEGATIVE); Resp Syncytial Virus, PCR NEGATIVE (NEGATIVE); SARS-Cov-2 (COVID-19) PCR, MMC NEGATIVE (NEGATIVE)
[2024-02-27] MEDS ORDERED: METAMUCIL POWD798 GM PO (04:09)
[2024-02-27] MEDS ORDERED: POTA8 PO (04:10)
[2024-02-27] MEDS ORDERED: SERT25 PO (04:12)
[2024-02-27] MEDS ORDERED: SEMGLEE (Y100 UNIT/2 SC (04:12)
[2024-02-27] MEDS ORDERED: Vitamin D1000 UNI1 PO (04:13)
[2024-02-27] MEDS ORDERED: Alph-E-Mixed400 UNIT PO (04:14)
[2024-02-27] MEDS ORDERED: Calcium Carbon500 MG PO (04:16)
[2024-02-27] MEDS ORDERED: CALMOSEPTINE TOP (04:17)
[2024-02-27] MEDS ORDERED: DIGESTIVE ENZYMES PO (04:19)
[2024-02-27] MEDS ORDERED: LEVOCETIRIZINE D5 MG PO (04:20)
[2024-02-27] MEDS ORDERED: Loperamide2 MG PO (04:21)
[2024-02-27] MEDS ORDERED: DULCOLAX400 MG/5 M PO (04:21)
[2024-02-27] MEDS ORDERED: NYAMYC15 G1 TOP (04:22)
[2024-02-27] MEDS ORDERED: ONDA4ODT SL (04:23)
[2024-02-27] MEDS ORDERED: PROC5 PO (04:23)
[2024-02-27] MEDS ORDERED: Fleet Enema132 ML PR (04:23)
[2024-02-27 05:01] LABS: Influenza A, PCR POSITIVE (NEGATIVE)
[2024-02-27] MEDS ORDERED: Lactated Ringer's 1,000 ML IV SCH (06:00)
[2024-02-27] MEDS ORDERED: Oseltamvir Phosphate 30 MG Cap PO SCH ×2 (06:00)
[2024-02-27] MEDS ORDERED: Insulin Regular 100 UNIT/ML 10ML Vial SC SCH ×2 (06:00→21:00)
[2024-02-27] MEDS ORDERED: Lactobacil 2-S.Thermo-Bifido 1 1 Cap PO SCH (09:00)
[2024-02-27] MEDS ORDERED: Amoxicillin/Clavulanate K 500 MG Tab PO SCH (09:00)
[2024-02-27] MEDS ORDERED: Enoxaparin 40 MG/0.4 ML SYR SC SCH (09:00)
[2024-02-27] MEDS ORDERED: MIRALAX119 GM PO (11:16)
--- NOTE | 2024-02-27 13:45 | NUR ---
RETURNED TO 212 VIA BED. SURGERY CANCELLED BY DR AVALOS, ANESTHESIOLOGIST DUE TO PT NEEDING A ECHO WITH MURMUR NOTED ON EXAM. REPORT GIVEN TO ONESIMO BENDER.
[2024-02-27] MEDS ORDERED: EpiNEPhrine 1 MG/1 ML 1ML Vial ONE (13:52)
[2024-02-27] MEDS ORDERED: Bupivacaine 0.5% HCl 5 MG/ML 30MLVIAL ONE (13:52)
[2024-02-27] MEDS ORDERED: CeFAZolin Sodium 2,000 MG in NS 100 ML IV SCH (14:15)
[2024-02-27] MEDS ORDERED: propofoL 100 ML IV ONE (14:26)
[2024-02-27] MEDS ORDERED: Dexamethasone Sod Phos 10 MG/ML 1ML VIAL ONE (14:28)
[2024-02-27] MEDS ORDERED: Ondansetron HCl 2 MG / ML 2ML Vial ONE (14:28)
[2024-02-27] MEDS ORDERED: Ketorolac Tromethamine 30mg Vial ONE (14:28)
[2024-02-27] MEDS ORDERED: Vasopressin 20 UNITS/ML 1ML Vial ONE (14:39)
[2024-02-27] MEDS ORDERED: HYDROmorphone HCl/Pf 1MG SYR ONE (14:47)
--- NOTE | 2024-02-27 14:53 | NUR ---
1430 0 PT TO DAY SURG FOR HIP
[2024-02-27] MEDS ORDERED: Labetalol HCL 5 MG/ML 4ML Injection (Single Dose) ONE (15:56)
--- NOTE | 2024-02-27 16:50 | NUR ---
CALLED DR OWEN BP SINCE BACK FROM DAY SURG. SHE TO REVIEW
--- NOTE | 2024-02-27 16:51 | NUR ---
PT TO DAY SURG FOR PIN PLACED IN HIP. RETURNED AT 1630 TOP ROOM. PT A/O PLEASANT COOP . FAMILY JUST RETURNED TO ROOM TO VISIT. AQUACEL PLACED OVER OP SITE. PT ON 2L O2, JUST WEANED TO 1L, B/P ELEVATED, DR NOTIFIED PENDING ORDRES. BED IN LOW POSITION,C ALL LITE IN [facility], CALLS APPROP
[2024-02-27] MEDS ORDERED: Bisacodyl 10 MG Supp PR PRN (19:45)
[2024-02-27] MEDS ORDERED: Calcium Carbonate 500 MG Tab Chew PO PRN (19:50)
[2024-02-27] MEDS ORDERED: Menthol/Zinc Oxide Ointment 1 APPLIC/113 GM Tube TOP PRN (19:50)
[2024-02-27] MEDS ORDERED: Miconazole Nitrate 2% 85 GM PWD TOP PRN (20:20)
[2024-02-27] MEDS ORDERED: Loratadine 10 MG Tab PO PRN (20:25)
[2024-02-27] MEDS ORDERED: Insulin Glargine-Yfgn 100 Unit/mL 3 ML SYR SC SCH (21:00)
[2024-02-27] MEDS ORDERED: Memantine HCL 5 MG Tab PO SCH (21:00)
[2024-02-27] MEDS ORDERED: Melatonin 5 MG Tablet PO SCH (21:00)
[2024-02-27] MEDS ORDERED: Docusate Sodium 100 MG Cap PO SCH (21:00)
[2024-02-28 03:07] VITALS: BP 132/61
--- NOTE | 2024-02-28 03:34 | NUR ---
SHIFT SUMM: PT HAS BEEN DOING WELL SINCE HER HIP PIN WAS PLACED, VITALS HAVE BEEN WNL AND CHECKED Q4. DRESSING HAS BEEN CHECKED THROUGH OUT SHIFT AND MINIMAL DRAINAGE ON AQUA SEAL KEPT IN PLACE. CAP REFILL ON LOWER EXTREMETIES GOOD AND PINK NORMAL SKIN. PT IS INCONT AND CALLS TO BE CHANGED. ENCOURAGED PT TO USE BEDPAN AND SHE DID ATTEMPT. PT REQUESTED PAIN MEDICATION AND HAS BEEN RECOVERING WELL W/MIN COMPLAINTS. PT HAD NO NEED FOR REG INSULIN TONIGHT AND RECEIVED 15 SUBQ OF GLARGINE BEFORE BED. PT IS A&O3-4 AND HAS CALL LIGHT IN REACH AND BED ALARM ON BUT CALLS APPROPRIATELY. SCD'S ARE ON LEGS. STILL WAITING ON A STOOL SAMPLE TO RULE OUT C-DIFF BUT PT TESTED POS FOR INFLUENZA A.
[2024-02-28 05:35] LABS: Hematocrit 29.4 % (33.0-51.0); Hemoglobin 9.7 g/dL (11.5-16.0); Mean Corpuscular Volume 94 fL (80-100); Platelet Count 252 K/mm3 (150-400); RDW Standard Deviation 47.9 fL (35.1-46.3); Red Blood Cell Count 3.13 M/mm3 (3.80-5.20); White Blood Cell Count 8.19 K/mm3 (4.00-11.30)
[2024-02-28] MEDS ORDERED: Pantoprazole Sodium 40 MG Tab PO SCH (06:00)
[2024-02-28] MEDS ORDERED: Levothyroxine Sodium 0.137 MG Tab PO SCH (06:00)
[2024-02-28 06:06] LABS: Bun/Creatinine Ratio 21.1 (12.0-20.0); Calcium, Blood 9.2 mg/dL (8.5-10.1); Creatinine, Blood 1.66 mg/dL (0.40-1.00); Potassium, Blood 3.4 mmol/L (3.5-5.5)
[2024-02-28 07:35] VITALS: BP 143/66
[2024-02-28] MEDS ORDERED: Carvedilol 6.25 MG Tab PO SCH (08:00)
[2024-02-28] MEDS ORDERED: DIGESTIVE ENZYMES PO SCH (08:30)
[2024-02-28] MEDS ORDERED: Potassium Chloride 20 MEQ TabCR PO STA (08:44)
[2024-02-28] MEDS ORDERED: Sertraline HCl 50 MG Tab PO SCH (09:00)
[2024-02-28] MEDS ORDERED: Polyethylene Glycol 3350 17 gm PO SCH (09:00)
[2024-02-28] MEDS ORDERED: Aspirin 81 MG TabEC PO SCH (09:00)
[2024-02-28] MEDS ORDERED: Ferrous Sulfate 325 MG Tab PO SCH (09:00)
[2024-02-28] MEDS ORDERED: Empagliflozin 10 MG TAB PO SCH (09:00)
[2024-02-28] MEDS ORDERED: Citalopram Hydrobromide 20 MG Tab PO SCH (09:00)
[2024-02-28] MEDS ORDERED: HydroCHLOROthiazide 25 mg Tab PO SCH (09:00)
[2024-02-28] MEDS ORDERED: Insulin Glargine-Yfgn 100 Unit/mL 3 ML SYR SC SCH (09:00)
[2024-02-28] MEDS ORDERED: Losartan Potassium 50 MG Tab PO SCH (09:00)
[2024-02-28] MEDS ORDERED: Vitamin E 400 Intn'l Units Cap PO SCH (09:00)
[2024-02-28] MEDS ORDERED: Cholecalciferol 1000 Unit Tablet (=25MCG) PO SCH (09:00)
[2024-02-28] MEDS ORDERED: Verapamil HCL 240 MG TABCR PO SCH (09:00)
[2024-02-28 16:17] VITALS: BP 127/50
--- NOTE | 2024-02-28 17:24 | NUR ---
SHIFT SUMMARY PT SLEEPING AT START OF SHIFT, RESTING QUIETLY WITH EYES CLOSED. ADMITTED FOR UTI AND FOUND TO R HIP FX FROM FALL AT HOME; PIN PLACED YESTERDAY BY DR PAYAN, PER REPORT. PT FROM [facility]; UPDATE GIVEN TO STAFF TODAY. PT HAS BEEN INCONTINENT OF URINE, NOT CALLING UNTIL AFTER SHE VOIDS. NO STOOL X2 DAYS. INFECTION CONTROL CALLED TO CK ON R/O C-DIFF ORDER. R/O CANCELED AT THIS TIME. PT REMAINS IN DROPLET ISO FOR INFLUENZA A AND ESBL IN URINE. DR PAYAN NOTIFIED TODAY FOR PT/OT ORDERS. DR WHITE BY [facility] TO SEE PT, PLACING ORDERS WELL. PT MEDICATED PER EMAR FOR C/O PAIN NEEDED. PLEASANT AND CO-OP WITH CARE. ABLE TO MAKE NEEDS KNOWN.
[2024-02-28 19:23] VITALS: BP 119/50
[2024-02-29 02:03] VITALS: BP 144/52
[2024-02-29 03:35] VITALS: BP 121/59
--- NOTE | 2024-02-29 05:14 | NUR ---
NOC SUMMARY- PT PAIN MANAGED WELL. PT HAS BEEN VOIDING VIA PUREWICK DEVICE. PT REPOSITIONED TOLERATED. PT HAS BEEN ABLE TO REST COMFORTABLY THIS SHIFT. CALL LIGHT IN REACH.
[2024-02-29 07:59] VITALS: BP 161/65
--- NOTE | 2024-02-29 10:04 | NUR ---
ASSUMED CARE OF PATIENT. PATIENT SLEPT THROUGH BEDSIDE REPORT. PRONE WITH HOB ELEVATED. NO ACUTE CONCERNS.
[2024-02-29] MEDS ORDERED: Enoxaparin 40 MG/0.4 ML SYR SC SCH (12:00)
[2024-02-29 12:32] LABS: Calcium, Blood 9.1 mg/dL (8.5-10.1); Creatinine, Blood 1.68 mg/dL (0.40-1.00); Potassium, Blood 3.6 mmol/L (3.5-5.5)
[2024-02-29 15:54] VITALS: BP 130/84
--- NOTE | 2024-02-29 18:33 | NUR ---
END OF SHIFT SUMMARY: A&Ox3-4. PLEASANT AND COOPERATIVE WITH CARE. CALLS APPROPRIATELY AND IS ABLE TO ADVOCATE NEEDS EFFECTIVELY. INCONTINENT OF BLADDER; PUREWICK IN PLACE. Q2H REPOSITIONING PROVIDED. LBM TODAY. MEDS WHOLE WITH FLUIDS. MEDICATED PRN PAIN x3 TODAY. 2PA c FWW. TTWB RLE AFTER WORKING WITH PT/OT TODAY; RECOMMENDING SNF IN 1-2 DAYS. GRANDDAUGHTER, ZAIN, IS A NURSE WITH [facility] AND CAN BE REACHED FOR ANY QUESTIONS OR CONCERNS. BED IN LOWEST POSITION, CALL LIGHT WITHIN REACH, ALL NEEDS MET. REPORT TO ONCOMING NURSE.
[2024-02-29 19:18] VITALS: BP 145/49
[2024-02-29] MEDS ORDERED: GuaiFENesin 600 MG TabCR PO SCH (21:00)
[2024-03-01 04:16] VITALS: BP 148/56
--- NOTE | 2024-03-01 04:41 | NUR ---
PT HAS HAD A GOOD EVENING WITH SOME PAIN AND SHE HAS BEEN MEDICATED FOR PAIN. PT HAS BEEN RESTING BUT HAVING A HARD TIME GETTING COMFORTABLE AND OFTEN NEEDS READJUSTED. PT ENJOYS HAVING LEFT FOOT PROPPED UP. PT IS STILL INCONTINENT AND PURE WICK HAS BEEN REMOVED BECAUSE PT HAS HAD DIARRHEA. PT CALLS WHEH SHES NEEDS CHANGED AND TAKES MEDS WWW FINE. I CHANGED PATIENTS AQUACELL DRESSING THIS SHIFT AND THERE WAS A LITTLE OVER 2 INCHES OF EXUDATE/BLOOD ON OLD AQUACELL BANDAGE. PT TURNS IN BED WELL W/LITTLE ASSISTANCE AND HAS BEEN FLOATED ON PILLOWS.PT HAS CALL LIGHT IN REACH.
--- NOTE | 2024-03-01 07:27 | NUR ---
ASSUMED CARE OF PATIENT. ASLEEP. SUPINE WITH HOB ELEVATED. LAST MEDICATED PAIN 0200.
[2024-03-01 07:36] VITALS: BP 143/60
[2024-03-01 09:00] LABS: Bun/Creatinine Ratio 25.8 (12.0-20.0); Calcium, Blood 8.9 mg/dL (8.5-10.1); Creatinine, Blood 1.63 mg/dL (0.40-1.00); Potassium, Blood 3.4 mmol/L (3.5-5.5)
[2024-03-01] MEDS ORDERED: ENOX40I SC (12:36)
[2024-03-01] MEDS ORDERED: AMOCLA500 PO (12:36)
[2024-03-01] MEDS ORDERED: Norco 5-325 Ta1 EACH PO (12:37)
[2024-03-01] MEDS ORDERED: GUAI600T33 PO (12:37)
[2024-03-01] MEDS ORDERED: VISBIOME 112.51 EACH PO (12:38)
[2024-03-01] MEDS ORDERED: Tamiflu30 MG PO (12:38)
[2024-03-01 12:46] LABS: CORONAVIRUS COVID-19 AG Negative (NEGATIVE)
[2024-03-01] MEDS ORDERED: Banana Flakes/Tos 1 EA Powder Pack PO SCH (14:00)
[2024-03-01 15:57] VITALS: BP 145/55
--- NOTE | 2024-03-01 19:18 | NUR ---
END OF SHIFT SUMMARY: A&Ox3-4. PLEASANT AND COOPERATIVE WITH CARE. CALLS APPROPRIATELY AND IS ABLE TO ADVOCATE NEEDS EFFECTIVELY. INCONTINENT OF BOWEL AND BLADDER. VALERIE DC d DUE TO SEVERAL BOUTS OF DIARRHEA. ORDERS FOR STOOL SAMPLE, BUT HAVE BEEN UNABLE TO COLLECT WITHOUT CONTAMINATING WITH URINE. BANANA FLAKES INITIATED TODAY. MEDICATED PRN PAIN x2 T/O SHIFT. Q2H REPOSITIONING PROVIDED. MEDS WHOLE WITH FLUIDS. MEDICATED PRN PAIN x3 TODAY. SMALL AREA OF EXCORIATION NOTED TO BE STARTING BELOW RIGHT GLUTEAL CLEFT. CONTINUING WITH Q2H TURNS. DID NOT GET UP TO CHAIR TODAY DUE TO FEAR OF SOILING SELF IN CHAIR. C / O GENERALIZED MALAISE, LIKELY RELATED TO INFLUENZA. WAS ACCEPTED TO SNF BUT INSURANCE AUTHORIZATION PENDING. GRANDDAUGHTER, ZAIN, IS A NURSE WITH [facility] AND CAN BE REACHED FOR ANY QUESTIONS OR CONCERNS. BED IN LOWEST POSITION, CALL LIGHT WITHIN REACH, ALL NEEDS MET. REPORT TO ONCOMING NURSE.
[2024-03-01 20:09] VITALS: BP 180/60
[2024-03-01 20:20] VITALS: BP 148/64
[2024-03-01 23:57] LABS: Adenovirus F 40/41 Not Detected (NOT DETECT); Astrovirus Not Detected (NOT DETECT); Campylobacter Sp Not Detected (NOT DETECT); Cryptosporidium Not Detected (NOT DETECT); Cyclospora Cayetanensis Not Detected (NOT DETECT); E. Coli O157 Not Detected (NOT DETECT); Entamoeba Histolytica Not Detected (NOT DETECT); Enteroaggregative E. coli-EAEC Not Detected (NOT DETECT); Enteropathogenic E. coli-EPEC Not Detected (NOT DETECT); Enterotoxigenic E. coli-ETEC Not Detected (NOT DETECT); Giardia Lamblia Not Detected (NOT DETECT); Norovirus GI/GII Not Detected (NOT DETECT); Plesiomonas Shigelloides Not Detected (NOT DETECT); Rotavirus A Not Detected (NOT DETECT); Salmonella Sp Not Detected (NOT DETECT); Sapovirus Not Detected (NOT DETECT); Shiga Toxin-prod E. coli-STEC Not Detected (NOT DETECT); Shigella/Enteroin E. coli-EIEC Not Detected (NOT DETECT); Vibrio Cholerae Not Detected (NOT DETECT); Vibrio Sp Not Detected (NOT DETECT); Yersinia Enterocolitica Not Detected (NOT DETECT)
--- NOTE | 2024-03-02 05:29 | NUR ---
PHONE ENGINEER SUMMARY PT REMAINS STABLE, ALTHOUGH HAD A DIFFICULT TIME SLEEPING RELATED TO A DIFFICULT TIME "GETTING COMFORTABLE". AFTER SEVERAL POSITION CHANGES AND REARRANGING PILLOWS WE TRIED MORE PAIN MEDICINE AND SHE FINALLY ABLE TO SLEEP. SENT A STOOL SAMPLE TO LAB AND GI PANEL IS NEGATIVE. PT HAD DIARRHEA ABOUT EVERY 2 HOURS THROUGHOUT THE NIGHT. MAY BENEFIT FROM IMMODIUM HER SKIN IS EXCORITAED AND HER GI PANEL IS NEGATIVE. THERE APPEARS TO BE DOCUMENTATION OF PATIENT HAVING A "STAGE 1" PRESSURE ULCER, BUT SHE DOESNT HAVE ANY PRESSURE INJURIES. SHE ONLY HAS SOME EXCORIATION RELATED TO DIARRHEA/MOISTURE. USED THE THICK BARRIER CREAM THROUGHOUT THE NIGHT AND HER SKIN ALREADY LOOKS LESS RED.
[2024-03-02 05:48] VITALS: BP 159/77
[2024-03-02 05:56] LABS: Bun/Creatinine Ratio 29.9 (12.0-20.0); Calcium, Blood 9.2 mg/dL (8.5-10.1); Creatinine, Blood 1.37 mg/dL (0.40-1.00); Potassium, Blood 3.5 mmol/L (3.5-5.5)
[2024-03-02 08:06] VITALS: BP 178/70
== END 2024-03-02 15:12 | DRG 481 ==
LOC: ER 21:46 → MEDS 02-27 02:26 → ENPENDDIS 03-01 11:19 → MEDS 03-02 15:12
PROVIDERS: Emergency Medicine; Internal Medicine; Orthopaedic Surgery; ADMIT Student in an Organized Health Care Education/Training Program
PROC: 0QH634Z Insertion of Internal Fixation Device into Right Upper Femur, Percutaneous Approach (ICD-10-PCS; principal; 2024-02-27 14:15)
DX: S72.011A Unspecified intracapsular fracture of right femur, initial encounter for closed fracture (principal); F03.93 Unspecified dementia, unspecified severity, with mood disturbance; N39.0 Urinary tract infection, site not specified; F03.A4 Unspecified dementia, mild, with anxiety; Z16.12 Extended spectrum beta lactamase (ESBL) resistance; W18.30XA Fall on same level, unspecified, initial encounter; I12.9 Hypertensive chronic kidney disease with stage 1 through stage 4 chronic kidney disease, or unspecified chronic kidney disease; E11.22 Type 2 diabetes mellitus with diabetic chronic kidney disease; E03.9 Hypothyroidism, unspecified; J10.1 Influenza due to other identified influenza virus with other respiratory manifestations; E78.5 Hyperlipidemia, unspecified; E86.0 Dehydration; D50.9 Iron deficiency anemia, unspecified; G47.00 Insomnia, unspecified; Z66 Do not resuscitate; B96.20 Unspecified Escherichia coli [E. coli] as the cause of diseases classified elsewhere; K44.9 Diaphragmatic hernia without obstruction or gangrene; K21.9 Gastro-esophageal reflux disease without esophagitis; A08.4 Viral intestinal infection, unspecified; N18.32 Chronic kidney disease, stage 3b; L89.151 Pressure ulcer of sacral region, stage 1; D63.1 Anemia in chronic kidney disease; E87.6 Hypokalemia; Z88.2 Allergy status to sulfonamides; Z88.8 Allergy status to other drugs, medicaments and biological substances; Z88.1 Allergy status to other antibiotic agents; Z79.82 Long term (current) use of aspirin; Z79.899 Other long term (current) drug therapy; Z79.890 Hormone replacement therapy; Z79.4 Long term (current) use of insulin; Z79.84 Long term (current) use of oral hypoglycemic drugs; Z79.891 Long term (current) use of opiate analgesic; Z90.49 Acquired absence of other specified parts of digestive tract; Z90.710 Acquired absence of both cervix and uterus; Z86.73 Personal history of transient ischemic attack (TIA), and cerebral infarction without residual deficits; Z87.19 Personal history of other diseases of the digestive system
CPT/HCPCS: 0241U; 36415; 71046; 73502; 80048; 80053; 81001; 82947; 83605; 83735; 84100; 84439; 84443; 84484; 85025; 85027; 87040; 87077; 87086; 87186; 87426-QW; 87507; 93005; 93010; 94760; 96361-59; 96374-59; 97110; 97162; 97530; 99285-25; A9270; C1713; C1769; J0171; J0690; J0696; J1100; J1171; J1650; J1815; J1885; J2405; J2704; J3010; J7030; J7120; P9612

== ENCOUNTER 2024-05-17 16:50 | Inpatient (IN) | payer OTHER ==
[~2024-05-17] VITALS: Ht 165.1 cm; Wt 84.9 kg
[~2024-05-17 16:50] MED LIST changes: +AMOCLA500 PO; +Alph-E-Mixed400 UNIT PO; +CALMOSEPTINE TOP; +Calcium Carbon500 MG PO; +DULCOLAX400 MG/5 M PO; +ENOX40I SC; +Fleet Enema132 ML PR; +GUAI600T33 PO; +JARDIANCE10 MG PO; +Loperamide2 MG PO; +MELATONIN5 M1 PO; +MIRALAX119 GM PO; +NYAMYC15 G1 TOP; +Norco 5-325 Ta1 EACH PO; +ONDA4ODT SL; +POTA8 PO; +PROC5 PO; +SERT25 PO; +Tamiflu30 MG PO; +Vitamin D1000 UNI1 PO
[2024-05-17 17:41] LABS: BASOPHILS PERCENT AUTO 0 % (0-2); EOSINOPHILS ABSOLUTE AUTO 0.02 K/mm3 (0.00-0.68); EOSINOPHILS PERCENT AUTO 0 % (0-6); Hemoglobin 11.4 g/dL (11.5-16.0); IMMATURE GRAN ABSOLUTE AUTO 0.19 K/mm3 (0.00-0.10); IMMATURE GRAN PERCENT AUTO 1 % (0-1); LYMPHOCYTES ABSOLUTE AUTO 0.92 K/mm3 (0.84-5.20); LYMPHOCYTES PERCENT AUTO 3 % (21-46); MONOCYTES ABSOLUTE AUTO 1.09 K/mm3 (0.16-1.47); MONOCYTES PERCENT AUTO 4 % (4-13); Mean Corpuscular HGB 31.7 pg (26.0-34.0); Mean Corpuscular HGB Conc 34.5 g/dL (31.5-36.5); Mean Corpuscular Volume 92 fL (80-100); Mean Platelet Volume 9.3 fL (9.1-12.4); NEUTROPHILS PERCENT AUTO 92 % (41-73); Platelet Count 450 K/mm3 (150-400); RDW Standard Deviation 43.8 fL (35.1-46.3); White Blood Cell Count 27.82 K/mm3 (4.00-11.30)
[2024-05-17 18:08] LABS: Source, Urine Straight Cath
[2024-05-17 18:16] LABS: Appearance, Urine Hazy (Clear); Bilirubin, Urine Neg (Neg); Blood, Urine 3+ (Neg); Glucose Qualitative, Urine 3+ (Neg); Ketones, Urine Neg (Neg); Leukocyte Esterase, Urine 3+ (Neg); Nitrite, Urine Neg (Neg); Protein, Urine 3+ (Neg); Urobilinogen, Urine NORM (Normal)
[2024-05-17 18:24] LABS: Color, Urine Pale Yellow (P-Yellow)
[2024-05-17 18:25] LABS: Bacteria Many /hpf; Squamous Epithelial Cells Few /hpf (Few); White Blood Cells, Urine TNTC /hpf (0-5)
[2024-05-17] MEDS ORDERED: Ondansetron HCl 2 MG / ML 2ML Vial IV ONE (18:25)
[2024-05-17] MEDS ORDERED: Ampicillin Sod/Sulbactam Sod 3 GM in NS 100 ML IV ONE (18:30)
[2024-05-17 18:52] LABS: Albumin, Blood 3.2 g/dL (3.4-5.0); Albumin/Globulin Ratio 0.7 (0.8-1.8); Bilirubin, Total 0.6 mg/dL (0.1-1.0); Bun/Creatinine Ratio 20.6 (12.0-20.0); Calcium, Blood 9.3 mg/dL (8.5-10.1); Creatinine, Blood 1.94 mg/dL (0.40-1.00); Globulin, Blood 4.7 g/dL (2.2-4.0); Potassium, Blood 2.9 mmol/L (3.5-5.5); Total Protein, Blood 7.9 g/dL (6.4-8.2)
[2024-05-17] MEDS ORDERED: Lactated Ringer's 1,000 ML IV ONE (19:20)
[2024-05-17] MEDS ORDERED: Potassium Chl 20MEQ/Water100ML 100 ML IV SCH (19:20)
[2024-05-17] MEDS ORDERED: Metoclopramide HCl 5MG / ML 2ML Vial IV ONE (19:20)
[2024-05-17] MEDS ORDERED: Potassium Chloride 40 MEQ in NS 250 ML IV SCH (20:00)
[2024-05-17] MEDS ORDERED: Acetaminophen 325 MG TABLET PO PRN (22:40)
[2024-05-17] MEDS ORDERED: FLU VACC TS2024-25(6MOS UP)/PF 45 MCG/0.5 ML SYRINGE IM ONE (22:45)
[2024-05-17] MEDS ORDERED: NS 1,000 ML IV SCH (22:45)
[2024-05-17] MEDS ORDERED: Ondansetron HCl 2 MG / ML 2ML Vial IV PRN (22:45)
[2024-05-17] MEDS ORDERED: Heparin Sodium 5000 Units/ML 1ML MDV SC SCH (23:00)
[2024-05-17] MEDS ORDERED: Meropenem 500 MG in NS 100 ML IV SCH (23:34)
[2024-05-18 01:06] LABS: Free Thyroxine 1.53 ng/dL (0.70-1.60)
[2024-05-18 01:07] LABS: Thyroid Stimulating Hormone 0.575 uIU/mL (0.360-4.800)
[2024-05-18 01:18] VITALS: BP 149/66
--- NOTE | 2024-05-18 04:35 | NUR ---
SHIFT SUMM: PT WAS A TRANSFER/ADMIT FROM THE ER AND IS A 83 YO DNR WHO WAS ADMITTED FOR SEPSIS/UTI. PT IS IN ISOLATION FOR ESBL IN URINE. PT HAS HAD A HARD TIME BEING ABLE TO URINATE AND RECIEVED Q SHIFT BLADDER SCANS AND PT ADMITS TO HAVING A LITTLE BIT OF URINE COME OUT PRIOR TO COMING TO THE FLOOR. PT IS NPO DUE TO NAUSEA AND VOMITTING. Q6 GLUCOSE CHECKS AND INCONT TO URINE AND STOOL AND BEDBOUND AT BASELINE.PT IS CURRENTLY ON 2L NC FOR SLEEPING BUT DOESNT WEAR O2 AT BASELINE ACCORDING TO REPORT. PT CAME FROM [facility]. PT IS ON TELE SINUS IN THE 80'S. PT IS ON CONT FLUIDS AT 75ML/HR AND IS A&OX4 FOR ME BUT HAS SOME BOUTS OF CONFUSION ACCORDING TO REPORT. PT HAS CALL LIGHT IN REACH AND I WILL CONTINUE TO MAKE ROUNDS ON PT.
[2024-05-18 05:34] VITALS: BP 159/59
[2024-05-18] MEDS ORDERED: Insulin Human Lispro 100 Units/ML 3ML Syringe SC SCH (07:30)
[2024-05-18 07:38] VITALS: BP 163/61
[2024-05-18 07:39] LABS: Hematocrit 31.3 % (33.0-51.0); Hemoglobin 10.7 g/dL (11.5-16.0); LYMPHOCYTES ABSOLUTE AUTO 1.22 K/mm3 (0.84-5.20); LYMPHOCYTES PERCENT AUTO 3 % (21-46); MONOCYTES ABSOLUTE AUTO 2.39 K/mm3 (0.16-1.47); MONOCYTES PERCENT AUTO 5 % (4-13); Mean Corpuscular HGB 31.5 pg (26.0-34.0); Mean Corpuscular HGB Conc 34.2 g/dL (31.5-36.5); Mean Corpuscular Volume 92 fL (80-100); Mean Platelet Volume 8.9 fL (9.1-12.4); Platelet Count 339 K/mm3 (150-400); RDW Coefficient Variation 13.5 % (11.7-14.2); RDW Standard Deviation 45.5 fL (35.1-46.3); White Blood Cell Count 47.26 K/mm3 (4.00-11.30)
[2024-05-18 07:46] LABS: BASOPHILS ABSOLUTE AUTO 0.02 K/mm3 (0.00-0.23); BASOPHILS PERCENT AUTO 0 % (0-2); EOSINOPHILS ABSOLUTE AUTO 4.67 K/mm3 (0.00-0.68); EOSINOPHILS PERCENT AUTO 10 % (0-6); IMMATURE GRAN PERCENT AUTO 6 % (0-1); NEUTROPHILS ABSOLUTE AUTO 36.36 K/mm3 (1.96-9.15); NEUTROPHILS PERCENT AUTO 77 % (41-73)
[2024-05-18 08:00] LABS: Albumin, Blood 2.6 g/dL (3.4-5.0); Albumin/Globulin Ratio 0.6 (0.8-1.8); Bilirubin, Total 0.4 mg/dL (0.1-1.0); Bun/Creatinine Ratio 18.5 (12.0-20.0); Calcium, Blood 9.1 mg/dL (8.5-10.1); Creatinine, Blood 2.48 mg/dL (0.40-1.00); Globulin, Blood 4.6 g/dL (2.2-4.0); Potassium, Blood 3.6 mmol/L (3.5-5.5); Total Protein, Blood 7.2 g/dL (6.4-8.2)
[2024-05-18 08:59] LABS: BAND PERCENT MAN 15 % (0-8); BASOPHILS PERCENT MAN 0 % (0-2); EOSINOPHILS PERCENT MAN 0 % (0-6); LYMPHOCYTES ABSOLUTE MAN 1.41 K/mm3 (0.84-5.20); LYMPHOCYTES PERCENT MAN 3 % (21-46); MONOCYTES ABSOLUTE MAN 1.89 K/mm3 (0.16-1.47); MONOCYTES PERCENT MAN 4 % (4-13); NEUTROPHILS ABSOLUTE MAN 43.95 K/mm3 (1.96-9.15); SEG NEUTROPHILS PERCENT MAN 78 % (41-73); TOTAL CELLS COUNTED 100
[2024-05-18] MEDS ORDERED: Bisacodyl 10 MG Supp PR SCH (09:00)
[2024-05-18] MEDS ORDERED: Sennosides 8.6 MG Tab PO SCH ×2 (09:00→21:00)
[2024-05-18] MEDS ORDERED: Magnesium Hydroxide Conc 10 ML UDC PO SCH (09:00)
[2024-05-18] MEDS ORDERED: NS 1,000 ML IV SCH (11:30)
[2024-05-18] MEDS ORDERED: Loratadine 10 MG Tab PO PRN (11:50)
[2024-05-18] MEDS ORDERED: Miconazole Nitrate 2% 85 GM PWD TOP PRN (11:50)
[2024-05-18] MEDS ORDERED: N-Acetylcysteine 600 MG CAP PO SCH ×2 (12:00)
--- NOTE | 2024-05-18 13:41 | NUR ---
note md put in orderes to d/c tele. pt off tele. pt reports no chest pain discomfort. pt reports not having dentures with her and requested a softer diet, order applied per pt request and nursing judgement. dr. lopez notified about updated micro cultures.
[2024-05-18 15:06] VITALS: BP 165/70
[2024-05-18 15:57] LABS: Source, Urine Foley catheter
[2024-05-18 16:04] LABS: Appearance, Urine Hazy (Clear); Bilirubin, Urine Neg (Neg); Blood, Urine 5+ (Neg); Glucose Qualitative, Urine 4+ (Neg); Ketones, Urine Neg (Neg); Leukocyte Esterase, Urine 2+ (Neg); Nitrite, Urine Neg (Neg); Protein, Urine 3+ (Neg); Specific Gravity, Urine 1.015 (1.003-1.022); Urobilinogen, Urine NORM (Normal)
[2024-05-18 16:20] LABS: Color, Urine Pale Yellow (P-Yellow)
[2024-05-18 16:22] LABS: Bacteria Mod /hpf; Squamous Epithelial Cells Mod /hpf (Few); Transitional Epithelial Cells Few /hpf (0-Rare); White Blood Cells, Urine 25-50 /hpf (0-5)
[2024-05-18] MEDS ORDERED: Carvedilol 6.25 MG Tab PO SCH (17:00)
--- NOTE | 2024-05-18 19:27 | NUR ---
SHIFT SUMMARY PT A&OX4. PT ADMITTED DUE TO SEPSIS. PT REPORTS PAIN ON R SIDE, PAIN MANAGED PER EMAR. DR. ORTEGA ORDERED A INDEWLLING CATH. THIS RN, INSERTED BEY, PT REPORTED NO COMPLAINTS. BEY DRAINING FREELY WITH NO DEPENDENT LOOPS. PT BLOOD PRESSURE HAS BEEN ELEVATED. PT ON 2L OF O2 VIA N/C, USES NONE AT BASE. PT SPO2 IS 97%. PT ACHS. PT RECEIVED COVERAGE FOR INSULIN DURING SHIFT. TELE D/C'D TODAY. PT TURNED Q2 HOURS. DIET DOWNGRADED TO SOFT DUE TO PT REPORTS NO DENTURES. BED IN LOWEST POSITION. CALL LIGHT IN REACH.
[2024-05-18 19:55] VITALS: BP 158/67
[2024-05-18] MEDS ORDERED: Insulin Glargine-Yfgn 100 Unit/mL 3 ML SYR SC SCH (21:00)
[2024-05-18] MEDS ORDERED: GuaiFENesin 600 MG TabCR PO SCH (21:00)
[2024-05-18] MEDS ORDERED: Memantine HCL 5 MG Tab PO SCH (21:00)
[2024-05-18] MEDS ORDERED: Lactobacil 2-S.Thermo-Bifido 1 1 Cap PO SCH (21:00)
[2024-05-18] MEDS ORDERED: Melatonin 5 MG Tablet PO SCH (21:00)
[2024-05-19 04:13] VITALS: BP 171/67
[2024-05-19 04:58] VITALS: BP 172/63
[2024-05-19] MEDS ORDERED: Pantoprazole Sodium 40 MG Tab PO SCH (06:00)
[2024-05-19] MEDS ORDERED: Levothyroxine Sodium 0.137 MG Tab PO SCH (06:00)
--- NOTE | 2024-05-19 06:03 | NUR ---
SHIFT SUMM: PT HAS BEEN RELAXING MOST OF THE SHIFT WITH SOME COMPLAINTS OF PAIN AND MEDICATED PER EMAR. PT HAS A BEY AND CATH CARE DONE. PT CALLS AND MAKES NEEDS KNOWN. PT HAS HAD COMPLAINTS OF ABDOMINAL DISCOMFORT AND NAUSEA, ZOFRAN WAS GIVEN FOR THIS.
[2024-05-19 07:10] LABS: Hematocrit 27.4 % (33.0-51.0); Hemoglobin 9.4 g/dL (11.5-16.0); Mean Corpuscular HGB 31.8 pg (26.0-34.0); Mean Corpuscular HGB Conc 34.3 g/dL (31.5-36.5); Mean Corpuscular Volume 93 fL (80-100); Platelet Count 240 K/mm3 (150-400); RDW Coefficient Variation 13.5 % (11.7-14.2); RDW Standard Deviation 46.2 fL (35.1-46.3); Red Blood Cell Count 2.96 M/mm3 (3.80-5.20); White Blood Cell Count 31.08 K/mm3 (4.00-11.30)
[2024-05-19 07:27] VITALS: BP 176/71
[2024-05-19 07:31] LABS: Bun/Creatinine Ratio 18.1 (12.0-20.0); Calcium, Blood 8.6 mg/dL (8.5-10.1); Creatinine, Blood 2.6 mg/dL (0.40-1.00); Potassium, Blood 3.2 mmol/L (3.5-5.5)
[2024-05-19 08:14] LABS: BAND PERCENT MAN 7 % (0-8); BASOPHILS PERCENT MAN 0 % (0-2); EOSINOPHILS ABSOLUTE MAN 0.31 K/mm3 (0.00-0.68); EOSINOPHILS PERCENT MAN 1 % (0-6); LYMPHOCYTES ABSOLUTE MAN 1.55 K/mm3 (0.84-5.20); LYMPHOCYTES PERCENT MAN 5 % (21-46); MONOCYTES ABSOLUTE MAN 0.62 K/mm3 (0.16-1.47); MONOCYTES PERCENT MAN 2 % (4-13); NEUTROPHILS ABSOLUTE MAN 28.59 K/mm3 (1.96-9.15); SEG NEUTROPHILS PERCENT MAN 85 % (41-73); TOTAL CELLS COUNTED 100
[2024-05-19] MEDS ORDERED: Cholecalciferol 1000 Unit Tablet (=25MCG) PO SCH (09:00)
[2024-05-19] MEDS ORDERED: Sertraline HCl 50 MG Tab PO SCH (09:00)
[2024-05-19] MEDS ORDERED: Citalopram Hydrobromide 10 MG TAB PO SCH (09:00)
[2024-05-19] MEDS ORDERED: Verapamil HCL 240 MG TABCR PO SCH (09:00)
[2024-05-19] MEDS ORDERED: Polyethylene Glycol 3350 17 gm PO SCH (09:00)
--- NOTE | 2024-05-19 10:13 | NUR ---
NOTE PT BLOOD PRESSURE THIS AM WAS 176/71. PT NOT ON TELE. CALLED DR. ORTEGA, REPORTED PRESSURE. PT RECEIVING FLUIDS AT 100 ML/HR. REPORTED WILL ORDER SCHEDULED HYDRALIZINE, NO NEW ORDERS AT THIS TIME. PT REPORTS NO CHEST PAIN DISCOMFORT. CALL LIGHT IN REACH.
[2024-05-19] MEDS ORDERED: OxyCODONE 5 mg/Acetamin 325 mg TABLET PO PRN (12:30)
[2024-05-19] MEDS ORDERED: Potassium Chloride 20 MEQ in NS 90 ML IV ONE (12:35)
[2024-05-19] MEDS ORDERED: NS 250 ML IV PRN (13:15)
[2024-05-19 15:40] VITALS: BP 147/66
[2024-05-19] MEDS ORDERED: FentaNYL Citrate 50 MCG/ML 2 ML Injection IV PRN (17:50)
[2024-05-19] MEDS ORDERED: Darbepoetin Alfa In Albumn Sol 40 MCG/0.4 ML SC SCH (18:00)
--- NOTE | 2024-05-19 19:28 | NUR ---
SHIFT SUMMARY PT A&OX4 WITH SOME FORGETFULNESS. PT ADMITTED DUE TO SEPSIS. FLUID ORDER COMPLETE. PT REPORTS PAIN ON R SIDE. ABD LOOKS DISTENDED, CALLED DR. ORTEGA TO LET HER KNOW INCREASE IN PT DISCOMFORT AND DISTENTION, PT REPORTS CONSTIPATION BUT HAD SMALL BM TODAY AND LAST NIGHT, DR. ORTEGA ORDERED LACTALOSE. PT ON 2L OF O2 VIA N/C. PT ACHS, PT RECEIVED COVERAGE FOR INSULIN DURING SHIFT. PT SPO2 IS 95%. PT HAS BEY, BEY DRAINING FREE WITH NO DEPENDENT LOOPS, PT TURNED Q2 HOURS. PT TOLERATING DIET. PT BED IN LOWEST POSITION, CALL LIGHT IN REACH, PT CALLS APPROPRIATE. VSS. PT HAD POTASSIUM REPLACED TODAY VIA IV. NEW IV INSERTED. PT HAD RENAL ULTRASOUND TODAY. DR. SALTER CONSULTED.
[2024-05-19 19:32] VITALS: BP 131/60
[2024-05-19] MEDS ORDERED: Lactulose 20 GM/30 ML UDC PO SCH (21:00)
[2024-05-19] MEDS ORDERED: NS 1,000 ML IV SCH (23:35)
--- NOTE | 2024-05-20 03:26 | NUR ---
SHIFT SUMM: PT HAS BEEN RELAXING MOST OF THE SHIFT AND ONLY HAS FELT NAUSEAS ONCE THIS SHIFT AND ZOFRAN WAS GIVEN.PT WAS GIVEN PERCOCET THIS SHIFT FOR PAIN THAT SEEMED TO MANAGE HER PAIN WELL. PT HAS A FLEY THAT IS FLOWING WELL AND CATH CARE COMPLETE. PT IS CURRENTLY ON 3L OF O2 AND WAS STATING THAT HER EARS WERE HURTING FROM THE NC SO I GOT EAR PROTECTORS FOR HER TO GO ON THE TUBING AND SHE SAID IT HELPED. DR SALTER CAME TO VISIT PT AND HAS PT ON 75ML/HR OF NS AGAIN. LACTULOSE WAS STARTE THIS EVENING AND PT HAS NOT YET HAD A BM BUT BRIEFS HAVE BEEN REGULARY CHECKED BECAUSE PT IS INCONT TO STOOL. PT HAS BEEN REPOSITIONED FOR COMFORT AND TO PREVENT BED SORES. PT HAS CALL LIGHT IN REACH AND CALLS TO MAKE NEEDS KNOWN. PT HAS BED ALARM SET FOR SAFETY.
[2024-05-20 05:12] VITALS: BP 143/64
[2024-05-20 06:06] LABS: BASOPHILS ABSOLUTE AUTO 0.07 K/mm3 (0.00-0.23); BASOPHILS PERCENT AUTO 0 % (0-2); EOSINOPHILS ABSOLUTE AUTO 0.03 K/mm3 (0.00-0.68); EOSINOPHILS PERCENT AUTO 0 % (0-6); Hemoglobin 8.8 g/dL (11.5-16.0); IMMATURE GRAN ABSOLUTE AUTO 1.49 K/mm3 (0.00-0.10); IMMATURE GRAN PERCENT AUTO 5 % (0-1); LYMPHOCYTES ABSOLUTE AUTO 1.31 K/mm3 (0.84-5.20); LYMPHOCYTES PERCENT AUTO 4 % (21-46); MONOCYTES ABSOLUTE AUTO 1.36 K/mm3 (0.16-1.47); MONOCYTES PERCENT AUTO 4 % (4-13); Mean Corpuscular HGB 32.2 pg (26.0-34.0); Mean Corpuscular HGB Conc 33.8 g/dL (31.5-36.5); Mean Corpuscular Volume 95 fL (80-100); Mean Platelet Volume 9.4 fL (9.1-12.4); NEUTROPHILS ABSOLUTE AUTO 27.71 K/mm3 (1.96-9.15); NEUTROPHILS PERCENT AUTO 87 % (41-73); Platelet Count 239 K/mm3 (150-400); RDW Coefficient Variation 13.5 % (11.7-14.2); RDW Standard Deviation 47.3 fL (35.1-46.3); Red Blood Cell Count 2.73 M/mm3 (3.80-5.20); White Blood Cell Count 31.97 K/mm3 (4.00-11.30)
--- NOTE | 2024-05-20 06:06 | NUR ---
PT AWOKEN NOT FEELING WELL AND WANTED ME TO STOP HER FLUIDS. PT BELIEVES THE FLUIDS ARE MAKING HER FEEL WORSE. I STOPPED FLUIDS FOR THE TIME BEING UNTIL I CAN TALK TO THE DOCTOR. PT DOES SOUND WHEEZY BUT HAS NORMAL VITAL SIGNS. PT WAS GIVEN ZOFRAN AND PERCOCET FOR NAUSEA AND PAIN MGMT. PT WAS CHANGED AND DID HAVE A DARK SMALL BM. PT'S STOMACH IS LEAD INFORMATICA DEVELOPER AND DISTENDED. I EDUCATED THE PT ON THE IMPORTANCE OF THE FLUIDS BUT SHE INSISTED THAT THEY BE TURNED OFF FOR NOW. PT REPOSITIONED WELL.
[2024-05-20 06:41] LABS: Albumin, Blood 2.3 g/dL (3.4-5.0); Anion Gap 13 mmol/L (3-11); Blood Urea Nitrogen 53 mg/dL (8-24); Bun/Creatinine Ratio 19.7 (12.0-20.0); CO2, Blood 19 mmol/L (21-32); Calcium, Blood 8.7 mg/dL (8.5-10.1); Chloride, Blood 102 mmol/L (98-108); Creatinine, Blood 2.69 mg/dL (0.40-1.00); Glomerular Filtration Rate 17 (60-); Glucose, Blood 164 mg/dL (70-99); Magnesium, Blood 2.2 mg/dL (1.6-2.4); Phosphorus, Blood 4.9 mg/dL (2.5-4.9); Potassium, Blood 3.6 mmol/L (3.5-5.5); Sodium, Blood 130 mmol/L (136-145); Uric Acid, Blood 6.6 mg/dL (2.6-6.0)
[2024-05-20 06:50] LABS: Osmolality, Serum 301 mos/KG (275-300)
[2024-05-20 07:08] VITALS: BP 117/54
[2024-05-20] MEDS ORDERED: Lactulose 20 GM/30 ML UDC PO PRN (08:10)
[2024-05-20] MEDS ORDERED: Verapamil HCL 180 MG TABCR PO SCH (09:00)
[2024-05-20] MEDS ORDERED: Sodium Bicarb 8.4% Inj 50 MEQ in NS 1,000 ML IV SCH (09:30)
[2024-05-20] MEDS ORDERED: Ipratropium/Albuterol SulF 2.5-0.5MG/3 ML Amp INH SCH (11:30)
[2024-05-20] MEDS ORDERED: Bumetanide 0.25 MG/ML 4ML ViaL IV ONE (11:35)
[2024-05-20] MEDS ORDERED: OxyCODONE 5 mg/Acetamin 325 mg TABLET PO PRN (12:00)
[2024-05-20] MEDS ORDERED: OxyCODONE 5 mg/Acetamin 325 mg TABLET PO ONE (12:00)
[2024-05-20 15:16] VITALS: BP 134/63
--- NOTE | 2024-05-20 19:30 | NUR ---
SHIFT SUMMARY PT A&OX4 WITH SOME FORGETFULNESS. PT ADMITTED DUE TO SEPSIS. PT REPORTS LOWER ABD. PAIN ABD STILL LOOKS DISTENDED WITH HYPERACTIVE BOWEL SOUNDS. PT HAD A LARGE BM TODAY. PT ON 2L VIA N/C, PT ACHS, PT RECEIVED COVERAGE FOR INSULIN DURING SHIFT. PT SPO2 IS 96%. PT HAS BEY. DRAINING FREE WITH NO DEPENDENT LOOPS. BEY BAG CHANGED TODAY AND REMAINS ON ICE FOR 24 HOUR URINE SAMPLE THAT STARTED AT 1150 AM. PT TURNED Q2 HOURS. ADVANCED PT BACK TO REG DIET DUE TO PT HAVING DENTURES NOW. THIS AM REPORTED TO JORDAN ABOUT PT REPORTING JUST NOT FEELING WELL AND HAVING EXPIRATORY WHEEZING, S/S OF FLUID OVERLOAD. DR. ORTEGA ORDERED TO STOP FLUIDS. FLUIDS STOPPED AT 0600. PHYSICAL THERAPY WORKED WITH PT. REPORTED ONLY WAS ABLE TO GET PT DANGLE AT SIDE OF BED, PT IS MAX ASSIST. PT IN BED. BED IN LOWEST POSITION, CALL LIGHT IN REACH. PT STARTED ON BUMEX TODAY AND RECEIVED TREATMENT FROM RESPIRATORY THERAPY. PT HAD FAMILY AT BEDSIDE.
[2024-05-20 20:16] VITALS: BP 164/66
[2024-05-20] MEDS ORDERED: MethylPREDNISolone Sod Succ 40 MG VIAL IV SCH (21:00)
[2024-05-21 05:31] VITALS: BP 157/64
[2024-05-21 06:08] LABS: BASOPHILS ABSOLUTE AUTO 0.02 K/mm3 (0.00-0.23); BASOPHILS PERCENT AUTO 0 % (0-2); EOSINOPHILS ABSOLUTE AUTO 0.01 K/mm3 (0.00-0.68); EOSINOPHILS PERCENT AUTO 0 % (0-6); Hematocrit 25.4 % (33.0-51.0); Hemoglobin 8.7 g/dL (11.5-16.0); IMMATURE GRAN ABSOLUTE AUTO 0.24 K/mm3 (0.00-0.10); IMMATURE GRAN PERCENT AUTO 2 % (0-1); LYMPHOCYTES ABSOLUTE AUTO 0.85 K/mm3 (0.84-5.20); LYMPHOCYTES PERCENT AUTO 6 % (21-46); MONOCYTES ABSOLUTE AUTO 0.29 K/mm3 (0.16-1.47); MONOCYTES PERCENT AUTO 2 % (4-13); Mean Corpuscular HGB 31.2 pg (26.0-34.0); Mean Corpuscular HGB Conc 34.3 g/dL (31.5-36.5); Mean Corpuscular Volume 91 fL (80-100); Mean Platelet Volume 9.6 fL (9.1-12.4); NEUTROPHILS ABSOLUTE AUTO 13.82 K/mm3 (1.96-9.15); NEUTROPHILS PERCENT AUTO 91 % (41-73); Platelet Count 246 K/mm3 (150-400); RDW Coefficient Variation 13.2 % (11.7-14.2); RDW Standard Deviation 43.8 fL (35.1-46.3); Red Blood Cell Count 2.79 M/mm3 (3.80-5.20); White Blood Cell Count 15.23 K/mm3 (4.00-11.30)
--- NOTE | 2024-05-21 06:40 | NUR ---
SHIFT SUMMARY PT A&OX3-4 AND ANSWERS QUESTIONS APPROPRIATELY. PT EXPERIENCES SOME ANXIETY, THERAPEUTIC COMMUNICATION UTELIZED. PT VSS, NO COMPLAINTS OF CP/PRESSURE OR SOB. PT RECEIVED SCHEDULED AND PRN MEDICATIONS WITH NO ADVERSE EFFECTS. PT SPENT MOST OF SHIFT IN BED WITH EYES CLOSED AND RESPIRATIONS EVEN AND UNLABORED. NO ACUTE EVENTS AT THIS TIME. REPOSITIONED Q2HRS. 2L OF O2 TO MAINTAIN O2 SATS ABOVE 90%. FALL PRECAUTIONS IN PLACE. ATTENDS CHANGED PRN. CALL LIGHT IN REACH.
[2024-05-21 06:57] LABS: Albumin, Blood 2.2 g/dL (3.4-5.0); Anion Gap 13 mmol/L (3-11); Blood Urea Nitrogen 51 mg/dL (8-24); Bun/Creatinine Ratio 26.4 (12.0-20.0); CO2, Blood 20 mmol/L (21-32); Chloride, Blood 101 mmol/L (98-108); Creatinine, Blood 1.93 mg/dL (0.40-1.00); Glomerular Filtration Rate 26 (60-); Glucose, Blood 205 mg/dL (70-99); Magnesium, Blood 2.4 mg/dL (1.6-2.4); Phosphorus, Blood 4.8 mg/dL (2.5-4.9); Potassium, Blood 3.3 mmol/L (3.5-5.5); Sodium, Blood 131 mmol/L (136-145)
[2024-05-21 07:43] VITALS: BP 168/70
[2024-05-21] MEDS ORDERED: Potassium Chloride 20 MEQ TabCR PO SCH (09:00)
[2024-05-21] MEDS ORDERED: Furosemide 40 MG Tab PO SCH (09:00)
--- NOTE | 2024-05-21 16:01 | NUR ---
NO ACUTE CHANGES. PT IS AOX3 AND COOPERATIVE OF CARE. PT WORKED WITH PHYSICAL THERAPY AND WAS ABLE TO SIT AT THE SIDE OF THE BED. PT USES HER CALL LIGHT. TREATED FOR BACK PAIN PER EMAR. CALL LIGHT WITHIN REACH WILL CONTINUE TO MONITOR.
[2024-05-21 16:07] VITALS: BP 145/59
[2024-05-21 19:40] VITALS: BP 157/66
[2024-05-21] MEDS ORDERED: OxyCODONE 5 mg/Acetamin 325 mg TABLET PO SCH (21:00)
[2024-05-22] VITALS (7 sets, daily range): BP systolic 148–189; BP diastolic 61–75
--- NOTE | 2024-05-22 04:06 | NUR ---
MATERIAL LIAISON SUMMARY: PT A&O X3-4, FORGETFUL. MAKES NEEDS KNOWN AND USES CALL LIGHT APPROPRIATELY. NO ACUTE EVENTS T/O SHIFT. DENIES CP / CHEST PRESSURE. TURN Q2H SCHEDULE IN PLACE. BED IN LOWEST POISTION. CALL LIGHT IN REACH. CARES ONGOING ORDERED.
[2024-05-22 06:32] LABS: Hematocrit 26.9 % (33.0-51.0); Hemoglobin 9.5 g/dL (11.5-16.0)
[2024-05-22 07:12] LABS: Albumin, Blood 2.2 g/dL (3.4-5.0); Anion Gap 12 mmol/L (3-11); Blood Urea Nitrogen 54 mg/dL (8-24); Bun/Creatinine Ratio 43.5 (12.0-20.0); CO2, Blood 23 mmol/L (21-32); Calcium, Blood 8.9 mg/dL (8.5-10.1); Chloride, Blood 98 mmol/L (98-108); Creatinine, Blood 1.24 mg/dL (0.40-1.00); Glomerular Filtration Rate 44 (60-); Glucose, Blood 283 mg/dL (70-99); Magnesium, Blood 2.3 mg/dL (1.6-2.4); Potassium, Blood 3.2 mmol/L (3.5-5.5); Sodium, Blood 130 mmol/L (136-145)
[2024-05-22] MEDS ORDERED: Potassium Chloride 20 MEQ TabCR PO ONE (08:45)
[2024-05-22] MEDS ORDERED: Meropenem 1,000 MG in NS 100 ML IV SCH (09:00)
[2024-05-22] MEDS ORDERED: Losartan Potassium 50 MG Tab PO ONE (12:20)
[2024-05-22] MEDS ORDERED: HydrALAZINE HCl 10 MG Tab PO PRN (12:20)
--- NOTE | 2024-05-22 12:22 | NUR ---
CALL TO DR ORTEGA REGARDING PATIENT ELEVATED BP, PATIENT ASYMPTOMATIC AT THIS TIME. DR ORTEGA ORDERED LOSARTAN NOW AND DAILY, ALSO HYDRALAZINE PRN HYPERTENSION.
--- NOTE | 2024-05-22 19:38 | NUR ---
SHIFT SUMMARY PATIENT RESTING IN BED MOST OF SHIFT. SHE IS UP TO EDGE OF BED THIS EVENING AND ABLE TO STANDX4 TIMES BUT NOT ABLE TO WALK AT THIS TIME. THIS CONTRACTS ADMINISTRATOR AND AUTOMOBILE BODY REPAIR SUPERVISOR LA USED SIT TO STAND TO ASSIST PATIENT UP TO CHAIR, TOLERATED WELL. BLOOD SUGAR WAS NOT COLLECTED THIS EVENING UNTIL AFTER DINNER AND INSULIN GIVEN TO COVER BG OF 349, NIGHT NURSE AWARE.
[2024-05-23 03:15] VITALS: BP 170/66
[2024-05-23 05:17] VITALS: BP 158/62
--- NOTE | 2024-05-23 05:18 | NUR ---
SHIFT SUMMARY PATIENT HAD NO ACUTE CHANGES. AXOX 3 AND BEDREST. POWERGLIDE RU ARM INTACT. IV ABX INFUSED. DENIES CHEST PAIN, SOB, AND N/V. CBG 330. BEY PATENT AND DRAINING TO GRAVITY. HAND TREMORS REPORTING NEEDS ASSISTANCE TAKING MEDICATION. HYPERTENSIVE: 170/66 PO APRESOLINE 10 MG GIVEN FOR SBP >160. RECHECK 158/62. CALL LIGHT IN REACH. BED IN LOWEST POSITION. WILL CONTINUE TO MONITOR UNTIL DAY SHIFT NURSE ASSUMES CARE.
[2024-05-23 06:10] LABS: Hematocrit 26.2 % (33.0-51.0); Hemoglobin 9.3 g/dL (11.5-16.0)
[2024-05-23 06:37] LABS: Albumin, Blood 2.1 g/dL (3.4-5.0); Anion Gap 12 mmol/L (3-11); Blood Urea Nitrogen 58 mg/dL (8-24); CO2, Blood 23 mmol/L (21-32); Calcium, Blood 8.7 mg/dL (8.5-10.1); Chloride, Blood 97 mmol/L (98-108); Creatinine, Blood 1.16 mg/dL (0.40-1.00); Glomerular Filtration Rate 47 (60-); Glucose, Blood 266 mg/dL (70-99); Magnesium, Blood 2.2 mg/dL (1.6-2.4); Phosphorus, Blood 3.9 mg/dL (2.5-4.9); Potassium, Blood 5.1 mmol/L (3.5-5.5); Sodium, Blood 127 mmol/L (136-145)
[2024-05-23 07:15] VITALS: BP 180/71
--- NOTE | 2024-05-23 07:15 | NUR ---
PHONE NOTIFICATION TO DR SALTER. IT WAS BROUGHT TO THIS NURSE ATTENTION AT 1900 ON 05/22/24 THAT THE URNIE SENT FOR 24 HOUR WAS NOT COMPLETE PRIOR TO SENDING AND THAT THE MARKETING DIRECTOR ASSISTED LIVING FOUND A FULL BOTTLE OF URINE IN PATIENT BATHROOM UNDER DIRTY LINENS ON 05/22/24 AT 1700. NO NEW ORDERS AT THIS TIME.
[2024-05-23] MEDS ORDERED: Potassium Chloride 20 MEQ TabCR PO SCH (09:00)
[2024-05-23] MEDS ORDERED: Losartan Potassium 50 MG Tab PO SCH (09:00)
[2024-05-23] MEDS ORDERED: Furosemide 20 MG Tab PO SCH (09:00)
[2024-05-23] MEDS ORDERED: OxyCODONE 5 mg/Acetamin 325 mg TABLET PO PRN (09:20)
[2024-05-23 09:42] VITALS: BP 121/49
[2024-05-23] MEDS ORDERED: HUMALOG KW100 UNIT/1 SC (12:13)
[2024-05-23] MEDS ORDERED: MEROPENEM114 IV (12:20)
[2024-05-23] MEDS ORDERED: MICONAZOLE NITR85 GM TOP (12:23)
[2024-05-23] MEDS ORDERED: Percocet 5-3251 EACH PO (12:25)
--- NOTE | 2024-05-23 13:04 | NUR ---
RN TO RN REPORT CALLED IN TO ONESIMO LEAL AT [facility].
--- NOTE | 2024-05-23 15:24 | NUR ---
DISCHARGE SUMMARY PATIENT WITH NO ACUTE EVENTS TODAY. SHE IS UP TO CHAIR WITH SIT TO STAND THIS AM. PATIENT TRANSFERRED TO [facility] TRANSPORT AT 1405.
== END 2024-05-23 14:00 | DRG 872 ==
LOC: ER 16:50 → MEDS 22:10
PROVIDERS: Internal Medicine; Internal Medicine Nephrology; Student in an Organized Health Care Education/Training Program; ADMIT Internal Medicine
DX: A41.59 Other Gram-negative sepsis (principal); Z16.12 Extended spectrum beta lactamase (ESBL) resistance; N17.9 Acute kidney failure, unspecified; N13.6 Pyonephrosis; E87.1 Hypo-osmolality and hyponatremia; E87.20 Acidosis, unspecified; R65.20 Severe sepsis without septic shock; N18.30 Chronic kidney disease, stage 3 unspecified; R33.9 Retention of urine, unspecified; Z66 Do not resuscitate; E11.22 Type 2 diabetes mellitus with diabetic chronic kidney disease; I12.9 Hypertensive chronic kidney disease with stage 1 through stage 4 chronic kidney disease, or unspecified chronic kidney disease; E03.9 Hypothyroidism, unspecified; G30.9 Alzheimer's disease, unspecified; F02.80 Dementia in other diseases classified elsewhere, unspecified severity, without behavioral disturbance, psychotic disturbance, mood disturbance, and anxiety; K59.00 Constipation, unspecified; E87.6 Hypokalemia; E86.0 Dehydration; D50.9 Iron deficiency anemia, unspecified; E87.70 Fluid overload, unspecified; J98.01 Acute bronchospasm; Z88.1 Allergy status to other antibiotic agents; Z88.6 Allergy status to analgesic agent; Z88.2 Allergy status to sulfonamides; Z79.82 Long term (current) use of aspirin; Z79.84 Long term (current) use of oral hypoglycemic drugs; Z79.4 Long term (current) use of insulin; Z79.890 Hormone replacement therapy; Z86.73 Personal history of transient ischemic attack (TIA), and cerebral infarction without residual deficits; Z79.01 Long term (current) use of anticoagulants
CPT/HCPCS: 36415; 74177; 76770; 80048; 80053; 80069; 81001; 82533; 82947; 83605; 83690; 83735; 83880; 83930; 84439; 84443; 84550; 85014; 85018; 85025; 87040; 87077; 87086; 87186; 94640; 94664; 94760; 96365-59; 96375-59; 97110; 97162; 97165; 97530; 99285-25; A9270; C1751; J0295; J0881; J1644; J1815; J2185; J2405; J2765; J2919; J3480; J7030; J7050; J7120; Q9967

== ENCOUNTER 2024-06-22 21:14 | Emergency (ER) | payer OTHER ==
[~2024-06-22] VITALS: Ht 167.6 cm; Wt 83.5 kg
[~2024-06-22 21:14] MED LIST changes: +HUMALOG KW100 UNIT/1 SC; +MEROPENEM114 IV; +MICONAZOLE NITR85 GM TOP
[2024-06-22 21:35] LABS: BASOPHILS ABSOLUTE AUTO 0.12 K/mm3 (0.00-0.23); BASOPHILS PERCENT AUTO 1 % (0-2); EOSINOPHILS ABSOLUTE AUTO 0.45 K/mm3 (0.00-0.68); EOSINOPHILS PERCENT AUTO 3 % (0-6); Hematocrit 30.7 % (33.0-51.0); Hemoglobin 9.9 g/dL (11.5-16.0); IMMATURE GRAN ABSOLUTE AUTO 0.25 K/mm3 (0.00-0.10); IMMATURE GRAN PERCENT AUTO 2 % (0-1); LYMPHOCYTES ABSOLUTE AUTO 1.85 K/mm3 (0.84-5.20); LYMPHOCYTES PERCENT AUTO 14 % (21-46); MONOCYTES ABSOLUTE AUTO 1.02 K/mm3 (0.16-1.47); MONOCYTES PERCENT AUTO 8 % (4-13); Mean Corpuscular HGB 29.8 pg (26.0-34.0); Mean Corpuscular HGB Conc 32.2 g/dL (31.5-36.5); Mean Corpuscular Volume 93 fL (80-100); Mean Platelet Volume 8.5 fL (9.1-12.4); NEUTROPHILS ABSOLUTE AUTO 9.49 K/mm3 (1.96-9.15); NEUTROPHILS PERCENT AUTO 72 % (41-73); Platelet Count 327 K/mm3 (150-400); RDW Coefficient Variation 14.5 % (11.7-14.2); RDW Standard Deviation 48.6 fL (35.1-46.3); Red Blood Cell Count 3.32 M/mm3 (3.80-5.20); White Blood Cell Count 13.18 K/mm3 (4.00-11.30)
[2024-06-22 21:58] LABS: Albumin, Blood 3.1 g/dL (3.4-5.0); Albumin/Globulin Ratio 0.7 (0.8-1.8); Bilirubin, Total 0.4 mg/dL (0.1-1.0); Bun/Creatinine Ratio 16.2 (12.0-20.0); Calcium, Blood 9.2 mg/dL (8.5-10.1); Creatinine, Blood 1.05 mg/dL (0.40-1.00); Globulin, Blood 4.7 g/dL (2.2-4.0); Potassium, Blood 4.2 mmol/L (3.5-5.5); Total Protein, Blood 7.8 g/dL (6.4-8.2)
[2024-06-22] MEDS ORDERED: Ondansetron HCl 2 MG / ML 2ML Vial IV ONE (23:55)
[2024-06-23 00:05] LABS: Source, Urine Clean Catch
[2024-06-23 00:15] LABS: Bilirubin, Urine Neg (Neg); Blood, Urine 2+ (Neg); Glucose Qualitative, Urine 4+ (Neg); Ketones, Urine Neg (Neg); Leukocyte Esterase, Urine Neg (Neg); Nitrite, Urine Neg (Neg); Protein, Urine 3+ (Neg); Urobilinogen, Urine NORM (Normal)
[2024-06-23 00:36] LABS: Color, Urine Pale Yellow (P-Yellow)
[2024-06-23 00:37] LABS: Appearance, Urine Hazy (Clear); Bacteria Mod /hpf; Red Blood Cells, Urine 0-2 /hpf (0-2); Squamous Epithelial Cells Few /hpf (Few)
[2024-06-23 01:17] LABS: Influenza A, PCR NEGATIVE (NEGATIVE); Influenza B, PCR NEGATIVE (NEGATIVE); Resp Syncytial Virus, PCR NEGATIVE (NEGATIVE); SARS-Cov-2 (COVID-19) PCR, MMC NEGATIVE (NEGATIVE)
[2024-06-23] MEDS ORDERED: Amoxicillin/Clavulanate K 875 MG Tab PO ONE (02:25)
[2024-06-23] MEDS ORDERED: AMOCLA875 PO (02:27)
[2024-06-23] MEDS ORDERED: ONDA4 PO (02:27)
[2024-06-23 03:00] VITALS: BP 178/80
[2024-06-27] MEDS ORDERED: POTA8 PO (17:46)
== END 2024-06-23 03:21 | disposition home or self-care (01) ==
LOC: ER 21:14
PROVIDERS: Student in an Organized Health Care Education/Training Program
DX: R11.2 Nausea with vomiting, unspecified (principal); N39.0 Urinary tract infection, site not specified; E11.22 Type 2 diabetes mellitus with diabetic chronic kidney disease; N18.30 Chronic kidney disease, stage 3 unspecified; I12.9 Hypertensive chronic kidney disease with stage 1 through stage 4 chronic kidney disease, or unspecified chronic kidney disease; E03.9 Hypothyroidism, unspecified; E78.5 Hyperlipidemia, unspecified; Z86.73 Personal history of transient ischemic attack (TIA), and cerebral infarction without residual deficits; Z79.4 Long term (current) use of insulin; Z79.899 Other long term (current) drug therapy; Z79.82 Long term (current) use of aspirin; Z88.1 Allergy status to other antibiotic agents; Z88.6 Allergy status to analgesic agent; Z88.2 Allergy status to sulfonamides; Z88.8 Allergy status to other drugs, medicaments and biological substances
CPT/HCPCS: 0241U; 80053; 81001; 83690; 84484; 85025; 87077; 87086; 87186; 93005; 93010; 96374; 99284-25; A9270; J2405

== ENCOUNTER 2024-06-26 21:31 | Emergency (ER) | payer OTHER ==
[~2024-06-26] VITALS: Ht 167.6 cm; Wt 83.5 kg
[~2024-06-26 21:31] MED LIST changes: +ONDA4 PO
[2024-06-26 21:53] LABS: BASOPHILS ABSOLUTE AUTO 0.09 K/mm3 (0.00-0.23); BASOPHILS PERCENT AUTO 1 % (0-2); EOSINOPHILS ABSOLUTE AUTO 0.33 K/mm3 (0.00-0.68); EOSINOPHILS PERCENT AUTO 2 % (0-6); Hematocrit 31.6 % (33.0-51.0); Hemoglobin 10.5 g/dL (11.5-16.0); IMMATURE GRAN ABSOLUTE AUTO 0.24 K/mm3 (0.00-0.10); IMMATURE GRAN PERCENT AUTO 1 % (0-1); LYMPHOCYTES ABSOLUTE AUTO 1.48 K/mm3 (0.84-5.20); LYMPHOCYTES PERCENT AUTO 9 % (21-46); MONOCYTES ABSOLUTE AUTO 1.04 K/mm3 (0.16-1.47); MONOCYTES PERCENT AUTO 6 % (4-13); Mean Corpuscular HGB Conc 33.2 g/dL (31.5-36.5); Mean Corpuscular Volume 90 fL (80-100); Mean Platelet Volume 8.2 fL (9.1-12.4); NEUTROPHILS PERCENT AUTO 81 % (41-73); Platelet Count 323 K/mm3 (150-400); RDW Coefficient Variation 14.2 % (11.7-14.2); RDW Standard Deviation 46.5 fL (35.1-46.3); White Blood Cell Count 16.88 K/mm3 (4.00-11.30)
[2024-06-26] MEDS ORDERED: Lactated Ringer's 1,000 ML IV ONE (22:05)
[2024-06-26] MEDS ORDERED: Ondansetron HCl 2 MG / ML 2ML Vial IV ONE (22:05)
[2024-06-26 22:09] LABS: Albumin, Blood 3.1 g/dL (3.4-5.0); Albumin/Globulin Ratio 0.6 (0.8-1.8); Bilirubin, Total 0.3 mg/dL (0.1-1.0); Bun/Creatinine Ratio 15.6 (12.0-20.0); Calcium, Blood 8.8 mg/dL (8.5-10.1); Creatinine, Blood 1.09 mg/dL (0.40-1.00); Potassium, Blood 3.3 mmol/L (3.5-5.5); Total Protein, Blood 8.1 g/dL (6.4-8.2)
[2024-06-26 23:49] LABS: CORONAVIRUS COVID-19 AG Negative (NEGATIVE); INFLUENZA A AG Negative (NEGATIVE); INFLUENZA B AG Negative (NEGATIVE)
[2024-06-26] MEDS ORDERED: METO5A PO (23:55)
[2024-06-27 00:30] VITALS: BP 171/67
== END 2024-06-27 01:34 | disposition home or self-care (01) ==
LOC: ER 21:31
PROVIDERS: Student in an Organized Health Care Education/Training Program
DX: N30.00 Acute cystitis without hematuria (principal); T36.96XA Underdosing of unspecified systemic antibiotic, initial encounter; E11.9 Type 2 diabetes mellitus without complications; I12.9 Hypertensive chronic kidney disease with stage 1 through stage 4 chronic kidney disease, or unspecified chronic kidney disease; E11.22 Type 2 diabetes mellitus with diabetic chronic kidney disease; N18.30 Chronic kidney disease, stage 3 unspecified; E03.9 Hypothyroidism, unspecified; E78.5 Hyperlipidemia, unspecified; G30.9 Alzheimer's disease, unspecified; F02.80 Dementia in other diseases classified elsewhere, unspecified severity, without behavioral disturbance, psychotic disturbance, mood disturbance, and anxiety; Z91.148 Patient's other noncompliance with medication regimen for other reason; Z86.73 Personal history of transient ischemic attack (TIA), and cerebral infarction without residual deficits; Z88.1 Allergy status to other antibiotic agents; Z88.6 Allergy status to analgesic agent; Z88.2 Allergy status to sulfonamides; Z88.8 Allergy status to other drugs, medicaments and biological substances; Z79.82 Long term (current) use of aspirin; Z79.890 Hormone replacement therapy; Z79.84 Long term (current) use of oral hypoglycemic drugs; Z79.4 Long term (current) use of insulin; Z79.899 Other long term (current) drug therapy
CPT/HCPCS: 74177; 80053; 83690; 85025; 87428-QW; 96360-59; 99285-25; J7120; Q9967

== ENCOUNTER 2024-06-27 11:16 | Inpatient (IN) | payer OTHER ==
[~2024-06-27] VITALS: Ht 167.6 cm; Wt 79.8 kg
[2024-06-27] VITALS (8 sets, daily range): BP systolic 153–200; BP diastolic 61–75
[~2024-06-27 11:16] MED LIST changes: +METO5A PO
[2024-06-27] MEDS ORDERED: Ondansetron HCl 2 MG / ML 2ML Vial IV ONE (11:45)
[2024-06-27] MEDS ORDERED: CefTRIAXone Sodium 2,000 MG in NS 100 ML IV ONE (11:45)
[2024-06-27 12:25] LABS: BASOPHILS PERCENT AUTO 1 % (0-2); EOSINOPHILS PERCENT AUTO 2 % (0-6); Hematocrit 30.7 % (33.0-51.0); Hemoglobin 10.1 g/dL (11.5-16.0); IMMATURE GRAN ABSOLUTE AUTO 0.15 K/mm3 (0.00-0.10); IMMATURE GRAN PERCENT AUTO 1 % (0-1); LYMPHOCYTES ABSOLUTE AUTO 2.27 K/mm3 (0.84-5.20); LYMPHOCYTES PERCENT AUTO 16 % (21-46); MONOCYTES ABSOLUTE AUTO 1.33 K/mm3 (0.16-1.47); MONOCYTES PERCENT AUTO 10 % (4-13); Mean Corpuscular HGB 30.4 pg (26.0-34.0); Mean Corpuscular HGB Conc 32.9 g/dL (31.5-36.5); Mean Corpuscular Volume 93 fL (80-100); Mean Platelet Volume 8.7 fL (9.1-12.4); NEUTROPHILS ABSOLUTE AUTO 9.81 K/mm3 (1.96-9.15); NEUTROPHILS PERCENT AUTO 70 % (41-73); Platelet Count 346 K/mm3 (150-400); RDW Coefficient Variation 14.3 % (11.7-14.2); Red Blood Cell Count 3.32 M/mm3 (3.80-5.20); White Blood Cell Count 13.96 K/mm3 (4.00-11.30)
[2024-06-27 13:08] LABS: Albumin, Blood 2.9 g/dL (3.4-5.0); Albumin/Globulin Ratio 0.6 (0.8-1.8); Bilirubin, Total 0.2 mg/dL (0.1-1.0); Bun/Creatinine Ratio 13.5 (12.0-20.0); Calcium, Blood 8.6 mg/dL (8.5-10.1); Creatinine, Blood 1.04 mg/dL (0.40-1.00); Globulin, Blood 4.7 g/dL (2.2-4.0); Potassium, Blood 3.5 mmol/L (3.5-5.5); Total Protein, Blood 7.6 g/dL (6.4-8.2)
[2024-06-27 13:15] LABS: Source, Urine Clean Catch
[2024-06-27 13:25] LABS: Appearance, Urine Clear (Clear); Bilirubin, Urine Neg (Neg); Blood, Urine 3+ (Neg); Glucose Qualitative, Urine 4+ (Neg); Ketones, Urine Neg (Neg); Leukocyte Esterase, Urine 1+ (Neg); Nitrite, Urine Neg (Neg); Protein, Urine 3+ (Neg); Urobilinogen, Urine NORM (Normal); pH, Urine 6.5 (5.0-8.0)
[2024-06-27 13:38] LABS: Color, Urine No Color (P-Yellow)
[2024-06-27 13:39] LABS: Bacteria Few /hpf; Red Blood Cells, Urine 0-2 /hpf (0-2); Squamous Epithelial Cells Few /hpf (Few); White Blood Cells, Urine 0-2 /hpf (0-5); Yeast/Fungi Urine Mod /hpf
[2024-06-27] MEDS ORDERED: Ondansetron HCl 2 MG / ML 2ML Vial IV PRN (14:45)
[2024-06-27] MEDS ORDERED: NS 1,000 ML IV SCH (15:00)
--- NOTE | 2024-06-27 16:05 | NUR ---
RECEIVED REPORT FROM TASNEEM (BUSINESS PERFORMANCE ANALYST) SUPERVISED BY ROSAS ECHOLS.
[2024-06-27] MEDS ORDERED: HydrALAZINE HCl 20 MG / ML 1ML Vial IV PRN (16:30)
[2024-06-27] MEDS ORDERED: NS 250 ML IV PRN (16:45)
[2024-06-27] MEDS ORDERED: HydrALAZINE HCl 20 MG / ML 1ML Vial IV ONE (17:40)
--- NOTE | 2024-06-27 17:55 | NUR ---
SHIFT SUMMARY/TRANSFER PT ARRIVED TO FLOOR AOX4, COOPERATIVE, ABLE TO MAKE NEEDS KNOWN. DID PUKED UPON ARRIVAL TO ROOM, MEDICATED EPR EMAR. NS RUNNIG AT 75ML/HOUR. MEDICATED WITH ZOFRAN BEFORE DINNER. PT IS FROM [place] WITH UTI. PT DOES REPORT GRANDDAUGHTER CHON IS POA, AND HAS ADVANCED CARE PLANNING PAPERWORK AT HOME. NO WAY TO COMMUNICATE WITH FAMILY TO BRING IN PAPERWORK. PURE WICK ACTIVE. BED IN LOWEST POSITION, CALL LIGHT WITHIN REACH.
[2024-06-28] VITALS (11 sets, daily range): BP systolic 157–210; BP diastolic 55–89
--- NOTE | 2024-06-28 04:19 | NUR ---
SHIFT SUMMARY PT ALERT ORIENTED ABLE TO VERBALIZE NEEDS HER BP HAS BEEN ELEVATED THIS SHIFT AT 172/61 AND 180/74. HYDRALAZINE WAS GIVEN X 2. SHE HAS A PUREWICK THATS DRAINING YELLOW URINE. REMAINS ON ROCEPHIN ORDERED FOR UTI. SHE REMAINS HAVING NAUSEA WITH EMESIS. MEDICATED HER WITH ZOFRAN WITH SOME RELIEF. REMAINS ON RA SATTING AT 96-975. fs done ac and hs was 215. remains on ns at 75. RESTING IN BED AT THIS TIME WITH CALL LIGHT IN REACH
[2024-06-28 05:00] LABS: Hematocrit 31.5 % (33.0-51.0); Hemoglobin 10.3 g/dL (11.5-16.0); Mean Corpuscular HGB 29.9 pg (26.0-34.0); Mean Corpuscular HGB Conc 32.7 g/dL (31.5-36.5); Mean Corpuscular Volume 92 fL (80-100); Mean Platelet Volume 8.5 fL (9.1-12.4); Platelet Count 356 K/mm3 (150-400); RDW Coefficient Variation 14.7 % (11.7-14.2); RDW Standard Deviation 49.1 fL (35.1-46.3); Red Blood Cell Count 3.44 M/mm3 (3.80-5.20); White Blood Cell Count 14.35 K/mm3 (4.00-11.30)
[2024-06-28 05:43] LABS: Calcium, Blood 8.5 mg/dL (8.5-10.1); Creatinine, Blood 1.23 mg/dL (0.40-1.00); Potassium, Blood 3.2 mmol/L (3.5-5.5)
[2024-06-28] MEDS ORDERED: Magnesium Hydroxide Conc 10 ML UDC PO PRN (07:40)
[2024-06-28] MEDS ORDERED: Menthol/Zinc Oxide Ointment 1 APPLIC/113 GM Tube TOP PRN (07:40)
[2024-06-28] MEDS ORDERED: OxyCODONE 5 mg/Acetamin 325 mg TABLET PO PRN (07:40)
[2024-06-28] MEDS ORDERED: Miconazole Nitrate 2% 85 GM PWD TOP PRN (07:50)
[2024-06-28] MEDS ORDERED: Acetaminophen 325 MG TABLET PO PRN (08:25)
[2024-06-28] MEDS ORDERED: Insulin Glargine-Yfgn 100 Unit/mL 3 ML SYR SC SCH (09:00)
[2024-06-28] MEDS ORDERED: Polyethylene Glycol 3350 17 gm PO SCH (09:00)
[2024-06-28] MEDS ORDERED: Memantine HCL 5 MG Tab PO SCH (09:00)
[2024-06-28] MEDS ORDERED: Cholecalciferol 1000 Unit Tablet (=25MCG) PO SCH (09:00)
[2024-06-28] MEDS ORDERED: Ferrous Sulfate 325 MG Tab PO SCH (09:00)
[2024-06-28] MEDS ORDERED: Sertraline HCl 50 MG Tab PO SCH (09:00)
[2024-06-28] MEDS ORDERED: Enoxaparin 40 MG/0.4 ML SYR SC SCH (09:00)
[2024-06-28] MEDS ORDERED: AmLODIPine Besylate 5 MG Tab PO SCH (09:00)
[2024-06-28] MEDS ORDERED: Losartan Potassium 25 MG Tab PO SCH (09:00)
[2024-06-28] MEDS ORDERED: Vitamin E 400 Intn'l Units Cap PO SCH (09:00)
[2024-06-28] MEDS ORDERED: Labetalol HCL 5 MG/ML 4ML Injection (Single Dose) IV PRN (09:25)
[2024-06-28] MEDS ORDERED: CefTRIAXone Sodium 1,000 MG in NS 100 ML IV SCH (12:00)
[2024-06-28] MEDS ORDERED: CloNIDine 0.1 MG Tab PO SCH (15:00)
--- NOTE | 2024-06-28 17:48 | NUR ---
PT HAD LOW GRADE FEVER AND HAD EMESIS AT THE BEGGING OF SHIFT WITH ELEVATED BP. MD WAS NOTIFIED. PRN BP MEDS GIVEN AND BP RESOLVED 160/88 AND HR 74. ZOFRAN HAD FULL EFFECT WITH NAUSEA. PT REMAINED IN BED ALL DAY BUT TURNED EVERY 2 HRS TO PREVENT SKIN BREAKDOWN. PT HAS NO QUESTIONS OR CONCERNS AT THIS TIME.
--- NOTE | 2024-06-28 18:26 | NUR ---
"Spiritual Care Visit | Pt. Request Pt. is resting in her bed but responds when I enter the room. The Pt. is pleasant. Facilitated a short life review. Listened with empathy and interest and a calming presence. Considered matters of the Pts. nacho and belief. Pt. displayed evidence of understanding and agreement. Prayed for the Pt. Pt. verbalized gratitude for the spiritual care visit and welcomed this geotechnicial properties technician to return."
[2024-06-28] MEDS ORDERED: Melatonin 5 MG Tablet PO SCH (21:00)
[2024-06-29] VITALS (9 sets, daily range): BP systolic 129–191; BP diastolic 52–70
--- NOTE | 2024-06-29 03:21 | NUR ---
SHIFT SUMMARY PT ALERT ORIENTED ABLE TO VERBALIZE NEEDS BP WAS GOOD TONITE AT 157/55 AND 129/63. SHES ON TELEMETRY AT NSR AT 66. NO TEMP THIS SHIFT HER TEMP WAS 98.0 AND 97.4. SHE TOOK IN A COUPLE OF THE BREAUX ICCES AND TOLERATED THEM WELL WITH NO EMESIS. REMAINS ON ROCEPHIN FOR UTI. SHE HAS A PUREWICK WITH DARK YELLOW URINE. REMAINS ON BEDREST. NO C/O PAIN. FS DONE AC AND HS WAS 248. RESTING IN BED AT THIS TIME WITH CALL LIGHT IN REACH
[2024-06-29 04:57] LABS: Hematocrit 29.2 % (33.0-51.0); Hemoglobin 9.6 g/dL (11.5-16.0); Mean Corpuscular HGB 30.3 pg (26.0-34.0); Mean Corpuscular HGB Conc 32.9 g/dL (31.5-36.5); Mean Corpuscular Volume 92 fL (80-100); Mean Platelet Volume 8.5 fL (9.1-12.4); Platelet Count 331 K/mm3 (150-400); RDW Standard Deviation 50.7 fL (35.1-46.3); Red Blood Cell Count 3.17 M/mm3 (3.80-5.20); White Blood Cell Count 12.75 K/mm3 (4.00-11.30)
[2024-06-29 05:20] LABS: Bun/Creatinine Ratio 14.4 (12.0-20.0); Creatinine, Blood 1.18 mg/dL (0.40-1.00); Potassium, Blood 2.9 mmol/L (3.5-5.5)
[2024-06-29] MEDS ORDERED: Pantoprazole Sodium 40 MG Tab PO SCH (06:00)
[2024-06-29] MEDS ORDERED: Potassium Chloride 20 MEQ TabCR PO ONE (07:30)
[2024-06-29] MEDS ORDERED: POTA8 PO (08:32)
[2024-06-29] MEDS ORDERED: Potassium Chloride 20 MEQ/15 ML UDC PO SCH (09:00)
[2024-06-29] MEDS ORDERED: Losartan Potassium 50 MG Tab PO SCH (09:00)
[2024-06-29] MEDS ORDERED: CloNIDine 0.1 MG Tab PO SCH (13:00)
[2024-06-29] MEDS ORDERED: Potassium Chloride 10 Meq Tablet SA PO SCH (17:00)
[2024-06-30] VITALS (7 sets, daily range): BP systolic 118–172; BP diastolic 55–69
--- NOTE | 2024-06-30 03:34 | NUR ---
SHIFT SUMM: PT IS AN 83 YO DNR WHO WAS ADMITTED FOR NAUSEA AND VOMITING. PT HAS HAD NO NAUSEA AND VOMITING THIS SHIFT AND HAS MORE OF AN APPETITE TONIGHT. PT IS INCONT TO URINE AND STOOL AND HAS A PURE WICK IN PLACE. PT HAS BEEN TURNED AND RESPOSITIONED FOR COMFORT AND ATTENDS CHECKED WITH TURNS AND NEEDED. PT NEEDS HELP WITH FEEDING HERSELF AND TAKES MEDS ONE AT A TIME WWW. PT IS BED RIDDEN. PT WAS GIVEN MEDICATION FOR PAIN LAST NIGHT AND INSULIN WAS GIVEN FOR BS CONTROL (SEE EMAR). PT IS ON TELE WITH NSR IN THE 60'S. PT IS IN CONTACT PRECAUTIONS FOR ESBL IN THE URINE.PT STILL HAS HYPOACTIVE BOWELS WITH NO BM THIS SHIFT YET. PT HAS SOME LABIA REDNESS AND POWDER HAS BEEN APPLIED. PT HAS CALLL LIGHT IN REACH AND RELAXING W/BED ALARM SET FOR SAFETY.
[2024-06-30 05:53] LABS: Calcium, Blood 8.3 mg/dL (8.5-10.1); Creatinine, Blood 1.16 mg/dL (0.40-1.00)
[2024-06-30] MEDS ORDERED: Potassium Chloride 20 MEQ/15 ML UDC PO SCH (09:00)
[2024-06-30] MEDS ORDERED: Insulin Human Lispro 100 Units/ML 3ML Syringe SC SCH (16:30)
--- NOTE | 2024-06-30 16:57 | NUR ---
DHIFT SUMMARY MS DIOP IS FEELING GENERALLY UNWELL TODAY. C/O NAUSEA, TREATED WITH ZOFRAN AT ~2PM, EMESIS UNDIGESTED FOOD ~300CC AT 445PM. C/O NECK PAIN, TREATED WITH 1 PERCOCET AND ROLLED TOWEL. C/O RIGHT HAND PAIN WHERE PIV WAS REMOVED AT START OF SHIFT. OFFERED ICE PACK WHICH SHE HAS DECLINED. SOME SWELLING TO SITE, PROPPED ON PILLOW. TMAX 99.9F. GIVEN MIRILAX THIS AM, NO BM. PT REQUESTED SUPPOSITORY. DR DUBON CALLED AND UPDATED. TELEPHONE ORDER FOR BISOCODYL SUPPOSITORY X1 AND REGLAN 10MG IV Q8HRS PRN. READ BACK DONE AND ORDERS ENTERED INTO [facility]. MS DIOP ATE 50% OF OATMEAL FOR BREAKFAST WITH MILK AND 50% OF MAC AND CHEESE AND ICECREAM WITH MILK FOR LUNCH. SHE HAS POOR APPETITE AND SAID SHE WILL NOT WANT SUPPER. BED LOW, CALL LIGHT IN REACH, BED ALARM ON.
[2024-06-30] MEDS ORDERED: Bisacodyl 10 MG Supp PR ONE (17:00)
[2024-06-30] MEDS ORDERED: Metoclopramide HCl 5MG / ML 2ML Vial IV PRN (17:00)
[2024-06-30] MEDS ORDERED: Potassium Chloride 10 Meq Tablet SA PO SCH (17:00)
--- NOTE | 2024-06-30 18:42 | NUR ---
RN NOTE MS CHIKIS REPORTS THAT SHE FEELS BETTER AFTER REGLAN. SHE ASKED ME TO NOTIFY ZAIN, HER GRANDAUGHTER OF HER STATUS WHICH WAS DONE ON THE TELEPHONE.
[2024-06-30] MEDS ORDERED: Prochlorperazine Maleate 5 MG Tab PO ONE (20:30)
[2024-06-30] MEDS ORDERED: Insulin Glargine-Yfgn 100 Unit/mL 3 ML SYR SC SCH (21:00)
[2024-07-01 02:31] VITALS: BP 130/53
[2024-07-01 05:00] LABS: Bun/Creatinine Ratio 21.6 (12.0-20.0); Calcium, Blood 8.2 mg/dL (8.5-10.1); Creatinine, Blood 1.25 mg/dL (0.40-1.00); Potassium, Blood 4.3 mmol/L (3.5-5.5)
--- NOTE | 2024-07-01 05:16 | NUR ---
SHIFT SUMMARY: PT AOX4 SLOW TO RESPOND AND LOW SPEECH BUT ANSWERS QUESTIONS APPROPRIATELY. PT HAD A DECENT SIZED BOWEL MOVEMENT. CHANGED AND REPOSITIONED. GOOD OUTPUT IN THE PURE WICK. PT DENIES CP OR SOB. A LOT OF NAUSEA AND VOMITTING AT THE START OF SHIFT. IV ZOFRAN DID NOT HELP, PROVIDER NOTIFIED AND GIVEN PO COMPAZINE WHICH HELPED THE PT TREMENDOUSLY. WAS ABLE TO KEEP DOWN PO MEDICATIONS THE REST OF THE SHIFT. PT WAS ALSO ABLE TO SLEEP WELL THROUGH THE NIGHT WITH NO COMPLAINTS. PT IN BED SLEEPING, BED IN LOWEST POSITION, CALL LIGHT IN REACH. CONTINUING CARE.
[2024-07-01 07:22] VITALS: BP 157/66
[2024-07-01 11:22] VITALS: BP 174/65
[2024-07-01] MEDS ORDERED: CloNIDine 0.1 MG Tab PO SCH (14:00)
[2024-07-01 15:48] VITALS: BP 148/83
--- NOTE | 2024-07-01 17:37 | NUR ---
SHIFT SUMMARY PT CONT LEVEL OF CARE WITH NO ACUTE CHANGES NOTED. PT NOTED TO BE A&O X4 AND REMAINS ON BEDREST REQUIRING TOTAL CARE. PT DENIES N/V THIS SHIFT. PT NOTED TO REGAIN APPITATE BACK THIS SHIFT. PT NOTED TO BE INCONT OF BLADDER AND HAS A PUREWICK IN PLACE. PT HAS BEEN REPOSITIONED Q2H. CURRENTLY AWAITING PLACEMENT AT [facility].
[2024-07-01 20:03] VITALS: BP 147/60
[2024-07-02] VITALS (7 sets, daily range): BP systolic 115–142; BP diastolic 51–65
--- NOTE | 2024-07-02 06:00 | NUR ---
SHIFT SUMMARY PATIENT IS ALERT AND ORIENTED. PATIENT HAS HAD NO ACUTE EVENTS THIS SHIFT. PATIENT HAS BEEN SLEEPING MOST OF SHIFT. PATIENT TOOK EVENING MEDS WITH NO INCIDENT AND WENT TO SLEEP. FREQUENT CHECKS. PATIENT HAS HAD PUREWICK IN PLACE. TURNED FREQUENTLY. PATIENT HAS HAD NO COMPLAINTS OF PAIN, NAUSEA, SOB, OR VOMITTING THIS SHIFT.
--- NOTE | 2024-07-02 18:18 | NUR ---
SHIFT SUMMARY PT CONT LEVEL OF CARE WITH NO ACUTE CHANGES NOTED.
--- NOTE | 2024-07-03 03:37 | NUR ---
NO VOMITING OR NAUSEA, PLEASANT, RESTING WELL OVERNIGHT, PRN PAIN MEDICATION (REFER TO MAR) GIVEN TO PT, NO CONCERNS AT THIS TIME. VSS, RRR AND UNLABORED.
[2024-07-03 04:51] VITALS: BP 116/60
[2024-07-03 07:32] VITALS: BP 131/62
[2024-07-03 12:25] VITALS: BP 131/56
--- NOTE | 2024-07-03 14:58 | NUR ---
Pt. is awake in bed when she welcomes my visit. Pt. is guarded at first, but warms as rapport is established. Considered matters of her L[employer] nacho, and explained my role as a fountain brush assembler. Pt. verbalized understanding and agreement. Life review was short, but the Pt. verbalized interest in having this fountain brush assembler pray for her. Prayed with Pt. With a smile the Pt. verbalized gratitude for the spiritual care visit.
[2024-07-03] MEDS ORDERED: Insulin Human Lispro 100 Units/ML 3ML Syringe SC SCH (16:30)
[2024-07-03 16:35] VITALS: BP 146/59
--- NOTE | 2024-07-03 18:14 | NUR ---
SHIFT SUMMARY PT COMPLAINING OF ABD PAIN TODAY. PT STATES SHE IS SLIGHTLY NAUSEATED AFTER EATING MEALS. DENIED NEED FOR NAUSEA MEDS HOWEVER. PURE WIK REMOVED AND ATTENDS IN PLACE. PT NOTIFEID STAFF AFTER AN INCONT VOID ONCE THIS SHIFT. PT GIVEN MIRALAX AND PRUNE JUICE TODAY. OFFERED MILK OF MAG, PT DENIED THIS FOR NOW SHE WANTS TO ALLOW THE PRUNE JUICE TIME TO WORK. PT WORKED WITH PHYSICAL THERAPY TODAY. CURRENT PLAN IS SNF PRIOR TO RETURNING TO [facility]. NO OTHER ACUTE CHANGES IN ASSESSMENT AT THIS TIME. VS REVIEWED. CALL LIGHT IN REACH. DENIES OTHER NEEDS AT THIS TIME.
[2024-07-03 19:40] VITALS: BP 142/71
[2024-07-03] MEDS ORDERED: Docusate Sodium 100 MG Cap PO SCH (21:00)
[2024-07-03 23:46] VITALS: BP 125/52
[2024-07-04 04:41] VITALS: BP 121/59
[2024-07-04 05:32] LABS: Bun/Creatinine Ratio 31.7 (12.0-20.0); Calcium, Blood 8.6 mg/dL (8.5-10.1); Creatinine, Blood 1.23 mg/dL (0.40-1.00); Potassium, Blood 4.8 mmol/L (3.5-5.5)
--- NOTE | 2024-07-04 05:58 | NUR ---
SHIFT SUMMARY PT ADMITTED FOR INTRACTABLE NAUSEA AND VOMITING . PT HAS LEFT FOREARM IV AND IS AC/HS . PT IS COOPERATIVE WITH CARE. PT IS ON TELE NORMAL SINUS RHYTHM 68. BED IS IN LOW POSITION, RAILS TIMES TWO, AND CALL LIGHT IS WITHIN REACH.
[2024-07-04 08:04] VITALS: BP 128/55
[2024-07-04] MEDS ORDERED: Bisacodyl 10 MG Supp PR ONE (13:05)
[2024-07-04 15:25] VITALS: BP 140/68
--- NOTE | 2024-07-04 17:35 | NUR ---
SHIFT SUMMARY CLIENT ALERT AND ORIENTED X 4. ADMITTED FO NEW ONSET CHF. BILAT LE WOUNDS REDRESSED WITH XEROFORM, ABD, AND KERLIX. D/C'D PUREWICK. 20G IV IN LEFT AC, PATENT. IV ABX CONTINUES. FLUID BALANCE = 1947ML WITH 2 UNMEASURED. BED IN LOWEST SETTING WITH HEAD BEDRAILS UP FOR SAFETY. CALL LIGHT IN REACH.
--- NOTE | 2024-07-04 18:08 | NUR ---
SHIFT SUMMARY EARLY IN SHIFT CLIENT DENIED NAUSEA. AFTER LUNCH, CLIENT REQUESTED BISACODYL SUPP. REGGIE USED TO TRANSFER CLIENT TO BAKERY DECORATOR. HAD EPISODE OF EMISIS AFTER TRANSFERRING TO RECLINER. CLIENT HAD A BM. CLIENT WAS PLACED ON 1200ML FREE WATER RESTRICTION. TELE DC'D. GIVEN BEDBATH. TOLERATED WELL. 20G SALINE LOCK IN LEFT AC, REMAINS PATENT. BED IN LOWEST SETTING WITH HEAD RAILS UP FOR SAFETY. CALL LIGHT WITHIN REACH
[2024-07-04 19:45] VITALS: BP 147/60
[2024-07-05 04:38] VITALS: BP 142/67
[2024-07-05 04:55] LABS: BASOPHILS ABSOLUTE AUTO 0.08 K/mm3 (0.00-0.23); BASOPHILS PERCENT AUTO 1 % (0-2); EOSINOPHILS ABSOLUTE AUTO 0.92 K/mm3 (0.00-0.68); EOSINOPHILS PERCENT AUTO 9 % (0-6); Hematocrit 26.4 % (33.0-51.0); Hemoglobin 8.7 g/dL (11.5-16.0); IMMATURE GRAN ABSOLUTE AUTO 0.29 K/mm3 (0.00-0.10); IMMATURE GRAN PERCENT AUTO 3 % (0-1); LYMPHOCYTES ABSOLUTE AUTO 2.22 K/mm3 (0.84-5.20); LYMPHOCYTES PERCENT AUTO 21 % (21-46); MONOCYTES PERCENT AUTO 10 % (4-13); Mean Corpuscular HGB 29.7 pg (26.0-34.0); Mean Corpuscular Volume 90 fL (80-100); Mean Platelet Volume 8.9 fL (9.1-12.4); NEUTROPHILS ABSOLUTE AUTO 5.97 K/mm3 (1.96-9.15); NEUTROPHILS PERCENT AUTO 56 % (41-73); Platelet Count 363 K/mm3 (150-400); RDW Coefficient Variation 14.2 % (11.7-14.2); RDW Standard Deviation 46.1 fL (35.1-46.3); Red Blood Cell Count 2.93 M/mm3 (3.80-5.20); White Blood Cell Count 10.58 K/mm3 (4.00-11.30)
--- NOTE | 2024-07-05 05:04 | NUR ---
SHIFT SUMMARY ADMITTED FOR UTI. DNR CODE. IV ANTIB RX ARE SCHEDULED. SHE IS EXPERIENCING NAUSEA, NAUSEA MEDICATION GIVEN THIS SHIFT. 1200 ML FREE WATER RESTRICTION, MONITORING NA+ LABS. SHE LIVES AT [facility]. HERE SHE IS BEDREST DUE TO SEVERE WEAKNESS. SHE IS INCONTINENT OF BM AND URINE. ACHS CBG'S - HIGH SS. ADA DIET.
[2024-07-05 05:19] LABS: Bun/Creatinine Ratio 29.2 (12.0-20.0); Calcium, Blood 8.9 mg/dL (8.5-10.1); Creatinine, Blood 1.13 mg/dL (0.40-1.00); Potassium, Blood 4.6 mmol/L (3.5-5.5)
[2024-07-05 07:23] VITALS: BP 142/63
[2024-07-05 15:39] VITALS: BP 162/76
[2024-07-05 16:51] LABS: Percent Saturation 21.5 % (15.0-50.0)
--- NOTE | 2024-07-05 17:51 | NUR ---
CLIENT READY AND ENGAGED IN PHYSICAL ACTIVITY TODAY. CLIENT MOVED TO RECLINER WITH NURSE ASSIST FOR LUNCH AND DINNER. C/O NAUSEA X 2. ZOFRAN GIVEN WITH GOOD RESULTS. REMAINS ON 1200ML FREE WATER RESTRICTION. 20G SALINE LOCK IN LEFT FOREARM REMAIN PATENT. BED IN LOWEST POSITION WITH HEAD RAIL IN THE UP POSITION FOR SAFETY. CALL LIGHT IN REACH.
[2024-07-05 19:35] VITALS: BP 154/55
--- NOTE | 2024-07-06 04:21 | NUR ---
SHIFT SUMMARY INTRACTABLE N/V 2/2 UROSEPSIS, RESOLVING. DNR. NO N/V OVERNIGHT. INITIAL PSEUDOMONAS AERUGINOSA CULTURE 06/27, 2 NEG CULTURES 06/28. FREE WATER RESTRICTION FOR LOW NA+. NO TELEMETRY. BP 154/55, HR 60 BPM. 20G IV LFA. STANDS/PIVOTS WITH GAIT BELT FROM BED TO CHAIR, DYSPNEIC WITH 1-PERSON ASSIST. DID NOT REQUIRE IRON TRANSFUSION, THOUGH WILL CONTINUE IRON SUPPLEMENT. BLOOD SUGARS ACHS, HIGH CS. PT DOES NOT WANT TO GO TO SNF. IF ABLE TO PERFORM ADLS, PT MAY D/C TO HER HOME AT [facility].
[2024-07-06 04:40] VITALS: BP 150/67
[2024-07-06 07:32] VITALS: BP 143/56
[2024-07-06] MEDS ORDERED: AMLO10 PO (11:52)
[2024-07-06] MEDS ORDERED: CATAPRES0.1 MG PO (11:52)
[2024-07-06] MEDS ORDERED: POTA10T PO (11:52)
[2024-07-06] MEDS ORDERED: INSULIN LI100 UNIT/8 SC (11:54)
[2024-07-06] MEDS ORDERED: LOSA50 PO (11:54)
--- NOTE | 2024-07-06 13:15 | NUR ---
[facility] ALL VALUABLES RETURNED AND SENT HOME WITH THE PT. REPORT CALLED TO DAVID LEIJA RN.
== END 2024-07-06 13:14 | DRG 872 ==
LOC: ER 11:16 → MEDS 11:17 → ER 11:17 → MEDS 11:17
PROVIDERS: Internal Medicine; Student in an Organized Health Care Education/Training Program; ADMIT Internal Medicine
DX: A41.9 Sepsis, unspecified organism (principal); N39.0 Urinary tract infection, site not specified; E87.1 Hypo-osmolality and hyponatremia; I12.9 Hypertensive chronic kidney disease with stage 1 through stage 4 chronic kidney disease, or unspecified chronic kidney disease; E11.22 Type 2 diabetes mellitus with diabetic chronic kidney disease; N18.30 Chronic kidney disease, stage 3 unspecified; E03.9 Hypothyroidism, unspecified; E78.5 Hyperlipidemia, unspecified; F32.A Depression, unspecified; E11.65 Type 2 diabetes mellitus with hyperglycemia; D63.1 Anemia in chronic kidney disease; E87.79 Other fluid overload; R53.81 Other malaise; G30.9 Alzheimer's disease, unspecified; F02.80 Dementia in other diseases classified elsewhere, unspecified severity, without behavioral disturbance, psychotic disturbance, mood disturbance, and anxiety; Z86.73 Personal history of transient ischemic attack (TIA), and cerebral infarction without residual deficits; Z88.1 Allergy status to other antibiotic agents; Z88.6 Allergy status to analgesic agent; Z88.2 Allergy status to sulfonamides; Z88.8 Allergy status to other drugs, medicaments and biological substances; Z79.899 Other long term (current) drug therapy; Z79.82 Long term (current) use of aspirin; Z79.890 Hormone replacement therapy; Z79.4 Long term (current) use of insulin; Z90.49 Acquired absence of other specified parts of digestive tract; Z90.710 Acquired absence of both cervix and uterus; Z86.19 Personal history of other infectious and parasitic diseases
CPT/HCPCS: 36415; 80048; 80053; 81001; 82728; 82947; 83540; 83550; 84132; 84484; 85025; 85027; 87040; 87077; 87086; 87186; 93005; 93010; 96365; 96366; 96372; 96375; 96376; 97110; 97110-CQ; 97162; 97530; 97530-CQ; 99284-25; A6590; A9270; G0378; J0360; J0696; J1650; J1815; J2405; J2765; J7030; J7050; Q0164